=== PATIENT | male | born 1940 | race Caucasian/White ===

== ENCOUNTER 2019-10-03 19:47 | Inpatient (IN) | payer MEDICARE ==
[~2019-10-03] VITALS: Ht 182.9 cm; Wt 105.0 kg
[~2019-10-03 19:47] MED LIST: AMIODARONE 150 MG/3 ML VIAL ONE; EPINEPHrine SYRINGE 1 MG/10 ML SYRINGE ONE; SODIUM BICARB ADULT 8.4% 50 MEQ/50 ML DISP.SYRIN. ONE
[2019-10-03] MEDS ORDERED: NOREPINEPHRINE VIAL 8 MG in IV DEXTROSE 5% 250 ML IV ONE (20:30)
[2019-10-03] MEDS ORDERED: CLINDAMYCIN 900MG PREMIX 50 ML IV ONE (20:30)
[2019-10-03] MEDS ORDERED: PIPERACILLIN/TAZOBACTAM 3.375 GM in IV NORMAL SALINE 50ML 50 ML IV ONE (20:30)
[2019-10-03] MEDS ORDERED: VANCOMYCIN 1GM IVPB FOR OMNI 250 ML IV ONE (20:30)
[2019-10-03] MEDS ORDERED: PANTOPRAZOLE IV PUSH 40 MG VIAL. IVP ONE (20:30)
[2019-10-03] MEDS ORDERED: ETOMIDATE 20 MG/10 ML VIAL. IV ONE (20:30)
[2019-10-03] MEDS ORDERED: ROCURONIUM 100 MG/10 ML VIAL. IV ONE (20:30)
[2019-10-03 20:32] LABS: BASO % 0 % (0-3); EOS % 0 % (0-3); HEMATOCRIT 23.3 % (39.0-53.0); HEMOGLOBIN 7.3 g/dL (13.0-17.5); LYMPH # 1.3 x10^3/uL (1.0-4.8); LYMPH % 4 % (24-48); MEAN CORPUSCULAR HEMOGLOBIN 30 pg (25-35); MEAN CORPUSCULAR HGB CONC 31 g/dL (31-37); MEAN CORPUSCULAR VOLUME 96 fL (79-100); MONO # 0.7 x10^3/uL (0.0-1.1); MONO % 2 % (0-9); NEUT # 28.6 x10^3/uL (1.8-7.7); NEUT % 94 % (31-73); PLATELET COUNT 244 x10^3/uL (140-400); RED BLOOD COUNT 2.42 x10^6/uL (4.30-5.70); RED CELL DISTRIBUTION WIDTH 19.4 % (11.5-14.5); WHITE BLOOD COUNT 30.6 x10^3/uL (4.0-11.0)
[2019-10-03 20:43] VITALS: BP 117/67
[2019-10-03 20:44] LABS: CALCIUM 8.1 mg/dL (8.5-10.1); CREATININE 1.4 mg/dL (0.7-1.3); GFR 49.1; POTASSIUM 3.4 mmol/L (3.5-5.1)
--- NOTE | 2019-10-03 20:44 | RAD ---
CHEST AP ONLY, KUB History: Reason: line placement / Spl. Instructions: / History: Technique: AP view the chest and AP view the abdomen. Comparison: CT September 17, 2019 Findings: Right IJ central line with tip projecting over the cavoatrial junction. Patchy bibasilar opacities. No pleural effusion. Pneumoperitoneum. Aortic endograft noted. Several nondilated air-filled loops of small bowel within the imaged upper abdomen. Air-fluid levels within the imaged colon. Impression: 1. Pneumoperitoneum. Recommend correlation for recent surgery. CT can further evaluate if clinically indicated. 2. Patchy bibasilar opacities, may represent atelectasis or consolidation. Recommend follow-up. 3. Interval placement right IJ central line. No pneumothorax. FOR INTERNAL CODING PURPOSES Critical result: Findings discussed with SAMUEL HERRERA at 10/03/2019 8:38 PM. RESULT CODE: (C) Electronically signed by: Harshal Watkins DO (10/03/2019 8:41 PM) [facility]
[2019-10-03 20:47] LABS: PROTHROMBIN TIME PATIENT 21.1 SEC (11.7-14.0)
[2019-10-03 20:50] LABS: ALBUMIN 1.2 g/dL (3.4-5.0); ALBUMIN/GLOBULIN RATIO 0.4 (1.0-1.7); TOTAL BILIRUBIN 0.7 mg/dL (0.2-1.0); TOTAL PROTEIN 4.6 g/dL (6.4-8.2)
[2019-10-03 20:58] LABS: CREATINE KINASE 24 U/L (39-308)
[2019-10-03 21:03] LABS: ISTAT HCO3 VEN 12 mmol/L (24-28); ISTAT PCO2 VEN 40 mmHg (41-51); ISTAT PO2 VEN 76 mmHg (20-40); ISTAT TCO2 VEN 14 mmol/L (21-32)
[2019-10-03 21:04] LABS: FIO2 VENOUS ISTAT 21; ISTAT SAT O2 VEN 89 %
[2019-10-03 21:29] LABS: % BANDS 17 % (0-9); % LYMPHS 3 % (24-48); % METAS 3 % (0-0); % MONOS 2 % (0-10); % MYELOS 2 % (0-0); % SEGS 73 % (35-66); NUCLEATED RBC 8
[2019-10-03 21:30] LABS: ANISOCYTOSIS SLIGHT; PLT ESTIMATE ADEQUATE (ADEQUATE); POLYCHROMASIA MOD; TOXIC GRANULATION SLIGHT
--- NOTE | 2019-10-03 21:46 | RAD ---
KUB History: Reason: confirm NG / Spl. Instructions: / History: Technique: Supine view the abdomen. Comparison: October 03, 2019 Findings: Interval placement enteric tube with tip projecting over the mid gastric body. Pneumoperitoneum. Aortic endograft noted. Imaged bowel is not obstructed. Patchy bibasilar opacities. Possible small left pleural effusion. Impression: 1. Interval placement enteric tube. 2. Pneumoperitoneum, unchanged. 3. Patchy bibasilar opacities with possible small left pleural effusion. Electronically signed by: Harshal Watkins DO (10/03/2019 9:43 PM) [facility]
--- NOTE | 2019-10-03 21:58 | PHYS DOC ---
General Adult EDM: Chief Complaint: HYPOTENSION HPI: HPI: The history was obtained from the patient's primary care physician Dr. King. Patient is a 79 old male with PMH multiple comorbidities who presents with a chief complaint of hematemesis. Per the patient's primary care physician the patient has been treated for necrotizing fasciitis with IV antibiotics status post perineal debridement. Patient's primary care doctor states that he is currently residing at [facility]. He has had coffee-ground emesis for the past 24 hours. He noted his hemoglobin to be approximately 7.3. He states fluids were initiated at the [facility] and the patient will be transferred to our facility for further care. No history can be obtained from the patient given his mental status change and history of dementia. Review of Systems: Review of Systems: Unable to obtain review of systems secondary to the patient's mental status change Heart Score: Risk Factors: Risk Factors: DM, Current or recent (<one month) smoker, HTN, HLP, family history of CAD, obesity. Risk Scores: Score 0 - 3: 2.5% MACE over next 6 weeks - Discharge Home Score 4 - 6: 20.3% MACE over next 6 weeks - Admit for Clinical Observation Score 7 - 10: 72.7% MACE over next 6 weeks - Early Invasive Strategies Current Medications: Current Medications Medications (Trade) Dose Ordered Sig/Miguel Start Time Stop Time Status Last Admin Dose Admin Clindamycin Phosphate 50 ml @ 100 mls/hr 1X ONCE 10/03/19 20:30 10/03/19 20:59 DC Etomidate (Amidate) 20 mg 1X ONCE 10/03/19 20:30 10/03/19 20:31 DC Fentanyl Citrate 30 ml @ 0 mls/hr CONT PRN 10/03/19 21:00 Norepinephrine Bitartrate 8 mg/ Dextrose 258 ml @ 23.22 mls/ hr 1X ONCE 10/03/19 20:30 10/04/19 07:36 Pantoprazole Sodium (PROTONIX VIAL for IV PUSH) 80 mg 1X ONCE 10/03/19 20:30 10/03/19 20:31 DC Piperacillin Sod/ Tazobactam Sod 3.375 gm/Sodium Chloride 50 ml @ 100 mls/hr 1X ONCE 10/03/19 20:30 10/03/19 20:59 DC Rocuronium Goode (Zemuron) 100 mg 1X ONCE 10/03/19 20:30 10/03/19 20:31 DC Vancomycin HCl 250 ml @ 250 mls/hr 1X ONCE 10/03/19 20:30 10/03/19 21:29 DC Allergies: Allergies: Allergies Coded Allergies Type Severity Reaction Last Updated Verified Unable to Assess 10/03/19 No Physical Exam: PE: Constitutional: Chronically ill-appearing, malnourished, in distress. HENT: Normocephalic, atraumatic, bilateral external ears normal. Oropharynx with coffee-ground dried emesis. Dried mucous membranes Eyes: PERRLA, EOMI, conjunctiva normal, no discharge. [] Neck: Normal range of motion, no tenderness, supple, no stridor. [] Cardiovascu tachycardic Lungs & Thorax: Coarse lung sounds bilaterally Abdomen: Mild distention. Involuntary guarding appreciated. No rigidity noted. Suprapubic catheter in place. Skin: Warm, dry, no erythema, no rash. [] Back: 4 x 4 inch wound noted in the sacral region. Draining purulent sanguinous material. Extremities: No tenderness, no cyanosis, no clubbing, ROM intact, no edema. [] Neurologic: Alert. Unable to participate in meaningful neurologic exam. Does move all 4 extremity spontaneously. GCS:(12) [id number] Current Patient Data: Labs: Laboratory Tests Test 10/03/19 19:54 10/03/19 20:07 10/03/19 20:38 White Blood Count 30.6 x10^3/uL (4.0-11.0) H Red Blood Count 2.42 x10^6/uL (4.30-5.70) L Hemoglobin 7.3 g/dL (13.0-17.5) L Hematocrit 23.3 % (39.0-53.0) L Mean Corpuscular Volume 96 fL (79-100) Mean Corpuscular Hemoglobin 30 pg (25-35) Mean Corpuscular Hemoglobin Concent 31 g/dL (31-37) Red Cell Distribution Width 19.4 % (11.5-14.5) H Platelet Count 244 x10^3/uL (140-400) Neutrophils (%) (Auto) 94 % (31-73) H Lymphocytes (%) (Auto) 4 % (24-48) L Monocytes (%) (Auto) 2 % (0-9) Eosinophils (%) (Auto) 0 % (0-3) Basophils (%) (Auto) 0 % (0-3) Neutrophils # (Auto) 28.6 x10^3/uL (1.8-7.7) H Lymphocytes # (Auto) 1.3 x10^3/uL (1.0-4.8) Monocytes # (Auto) 0.7 x10^3/uL (0.0-1.1) Eosinophils # (Auto) 0.0 x10^3/uL (0.0-0.7) Basophils # (Auto) 0.0 x10^3/uL (0.0-0.2) Segmented Neutrophils % 73 % (35-66) H Band Neutrophils % 17 % (0-9) H Lymphocytes % 3 % (24-48) L Monocytes % 2 % (0-10) Metamyelocytes % 3 % (0-0) H Myelocytes % 2 % (0-0) H Nucleated Red Blood Cells 8 Toxic Granulation Slight Platelet Estimate Adequate (ADEQUATE) Polychromasia Mod Anisocytosis Slight Prothrombin Time 21.1 SEC (11.7-14.0) H Prothrombin Time INR 1.9 (0.8-1.1) H Activated Partial Thromboplast Time 41 SEC (24-38) H Fibrinogen 270 mg/dL (200-440) Sodium Level 139 mmol/L (136-145) Potassium Level 3.4 mmol/L (3.5-5.1) L Chloride Level 107 mmol/L (98-107) Carbon Dioxide Level 20 mmol/L (21-32) L Anion Gap 12 (6-14) Blood Urea Nitrogen 29 mg/dL (8-26) H Creatinine 1.4 mg/dL (0.7-1.3) H Estimated GFR (Cockcroft-Gault) 49.1 BUN/Creatinine Ratio 21 (6-20) H Glucose Level 192 mg/dL (70-99) H Lactic Acid Level 7.4 mmol/L (0.4-2.0) *H Calcium Level 8.1 mg/dL (8.5-10.1) L Total Bilirubin 0.7 mg/dL (0.2-1.0) Aspartate Amino Transferase (AST) 16 U/L (15-37) Alanine Aminotransferase (ALT) 18 U/L (16-63) Alkaline Phosphatase 157 U/L (46-116) H Creatine Kinase 24 U/L (39-308) L Creatine Kinase MB (Mass) 1.7 ng/mL (0.0-3.6) Creatine Kinase MB Relative Index % (0-4) Troponin I Quantitative 0.024 ng/mL (0.000-0.055) [id number]-Jif-U-Type Natriuretic Peptide 3865 pg/mL (0-449) H Total Protein 4.6 g/dL (6.4-8.2) L Albumin 1.2 g/dL (3.4-5.0) L Albumin/Globulin Ratio 0.4 (1.0-1.7) L POC Troponin I 0.04 ng/ml (<0.08) POC Venous pH 7.10 (7.32-7.42) L POC Venous pCO2 40 mmHg (41-51) L POC Venous pO2 76 mmHg (20-40) H Venous Blood HCO3 12 mmol/L (24-28) L POC Venous O2 Saturation (Salvatore) 89 % POC FiO2 21 Ionized Calcium 1.15 mmol/L (1.13-1.32) Laboratory Tests 10/03/19 19:54 Laboratory Tests 10/03/19 19:54 Vital Signs: Vital Signs Date Time Temp Pulse Resp B/P (MAP) Pulse Ox O2 Delivery O2 Flow Rate FiO2 10/03/19 20:53 Ventilator EKG: EKG: EKG consistent with sinus tachycardia. Ventricular rate 134 bpm. Left axis noted. Sinus arrhythmia present. No acute ST segment elevation noted. [] Radiology/Procedures: Radiology/Procedures: Endotracheal Intubation Procedure Note [place] Protocol: 1. Pre-procedure verification: - Correct patient, correct site, correct procedure (correct patient verified against two identifiers: name and date of ) - H&P or H&P update complete and in medical record - Review of: Radiology images, scans, labs, pathology, biopsy reports with appropriate identifiers (if applicable) - Any required blood products, implants, devices, and/or special equipment for the procedure (if applicable) 2. Site Markings - when appropriate: N/A 3. Time Out: Time out performed (Includes validating the following: Correct patient, correct side/site marked and procedure to performed, correct position) Procedure Details: Procedure: Endotracheal intubation Indication: Acute Respiratory Failure secondary to hypoxia Consent: Obtained verbally from and daughter Procedure: The patient was placed in the supine position and pre-oxygenated with 100% oxygen via BVM. Sedation was given with 20 mg of etomidate. Using a 4, glide scope, the cords were visualized; an 7.5 cuffed tube was able to be passed through the cords with direct visualization. Condensation was seen in the tube; bilateral breath-sounds were present, with none auscultated over the abdomen; good color change was present on EtCO2 detector. A CXR is ordered to cofirm placement. The ETT was secured at 24 cm at the lips. Mechanical ventilation is initiated at A/C, Vt 500 ml, 100% FiO2, rate 20, PEEP 5. The patient tolerated procedure without immediate complication. Atif Mederos, DO Procedure Central Line: Central Venous Line Procedure Note Sedation Plan: No Sedation [place] Protocol: 1. Pre-procedure verification: - Correct patient, correct site, correct procedure (correct patient verified against two identifiers: name and date of ) - H&P or H&P update complete and in medical record - Review of: Radiology images, scans, labs, pathology, biopsy reports with appropriate identifiers (if applicable) - Any required blood products, implants, devices, and/or special equipment for the procedure (if applicable) 2. Site Markings - when appropriate: N/A 3. Time Out: Time out performed (Includes validating the following: Correct patient, correct side/site marked and procedure to performed, correct position) Procedure Details: PROCEDURE: Central Line Placement INDICATION: Vascular access, hypotension, pressors CONSENT: Emergency consent PROCEDURE: Time out performed. The patient's right internal jugular vein was initially visualized via ultrasound. The area was then cleansed with Chlorhexadine Gluconate x30 seconds and anesthetized with 0 ml 1% lidocaine. The area was then prepped and drapped in sterile fashion, including maximum barrier precautions. Under sterile technique and U/S guidence, the introducer needle was cannulated into the right internal jugular vein vein. The guidewire was then threaded into the vein. The dilator was then placed over the guidewire and into the vein. It was then removed and then the Arrow 7Fr triple-lumen catheter was placed over the guidewire and the guidewire removed via the distal port. Dark red, non- pulsatile blood was aspirated from each port; each port was then flushed with NSS. The CVC was then secured with a stat-lock. A blue biodisk was placed after the area was cleansed again. The site was then dressed with an Opsite. CXR ordered to confirm placement. EBL minimal Atif Mederos, Course & Med Decision Making: Course & Med Decision Making Pertinent Labs and Imaging studies reviewed. (See chart for details) Patient is a 79-year-old male who presents from [facility] due to concerns for hematemesis. Upon arrival the patient does appear in acute distress. He does appear altered. Unclear whether this is secondary to his dementia or hypotension. Initial blood pressure noted to be hypotensive approximate 90/60. Tachycardic of approximate 130. 20-gauge IV was placed in the left antecubital fossa region for access. Patient remained hypotensive. Given my concern for our need of vascular access, centrally acting medication, resuscitation right internal jugular central catheter was placed. Emergency consent obtained. See procedure note for further details. Patient was started on fluid resuscitation. He was given broad-spectrum antibiotics including IV vancomycin, Zosyn, and clindamycin given his current necrotizing fasciitis infection. 80 mg of IV Protonix was administered given his hematemesis and concern for upper GI bleed. Patient did briefly respond to IV fluids however he did remain hypotensive. Given his labs revealed a hemoglobin of 7.3 yesterday to [facility] facility 2 units of packed red blood cells were administered. Initially massive transfusion protocol was started given my concern that the patient may need multiple blood products given potential active GI bleed. On repeat assessment his blood pressure did respond somewhat to transfusion. He was started on a low-dose of Levophed 0.02 mcg/kg/min. He did require intubation secondary to altered mental status as well as intermittent hypoxia. Bear hugger was applied given our difficulty in obtaining temperature reading. I did discuss the KUB findings with Dr. Solis general surgeon. It was concern for pneumoperitoneum that was not related to his recent procedure. Unfortunately patient is not sta ble enough for operative intervention at this time. I also spoke with Dr. Ward our GI specialist came I concern for unstable GI bleed although he did not show any further signs of GI blood loss in the trauma bay. Patient's family was updated on the patient's guarded prognosis. They did specifically tell me that they would like all measures taken including intubation and surgical intervention if indicated. Patient's primary care physician Dr. Vazquez was updated on the patient's care. He specifically recommended 100 mg of Solu- Cortef every 6 hours, 40 mg of Protonix daily, CT abdomen pelvis without contrast to be obtained tomorrow. I do not currently feel the patient is stable enough to transfer to CAT scan at this time. Patient will be hospitalized to the ICU with guarded prognosis. Dragon Disclaimer: Dragon Disclaimer: This electronic medical record was generated, in whole or in part, using a voice recognition dictation system. Departure Departure Impression: Primary Impression: Necrotizing fasciitis Additional Impressions: Septic shock Hemorrhagic shock Anemia Qualified Codes: D64.9 - Anemia, unspecified Sepsis with acute hypoxic respiratory failure Qualified Codes: A41.9 - Sepsis, unspecified organism; R65.20 - Severe sepsis without septic shock; J96.01 - Acute respiratory failure with hypoxia Lactic acidemia Metabolic acidosis Hematemesis Qualified Codes: K92.0 - Hematemesis Disposition: ADMITTED INPATIENT Condition: CRITICAL Referrals: DARNELL GUADALUPE MD (PCP) Justicifation of Admission Dx: Justifications for Admission: Justification of Admission Dx: Yes Respiratory Failure: Mechanical Ventilation Comminuty Aquired Pneumonia: Bactermia Sepsis: End-Organ Dysfunction ATIF MEDEROS DO Oct 03, 2019 21:58
[2019-10-03] MEDS ORDERED: MORPHINE SULFATE 4 MG/ML VIAL. IV PRN (22:15)
[2019-10-03] MEDS ORDERED: ONDANSETRON PF 4 MG/2 ML VIAL. IV PRN (22:15)
[2019-10-03] MEDS ORDERED: EPINEPHrine VIAL 5 MG in IV NORMAL SALINE 250ML 250 ML IV PRN (22:45)
[2019-10-03] MEDS ORDERED: EPINEPHrine SYRINGE 1 MG/10 ML SYRINGE IV ONE ×3 (22:45)
[2019-10-03 22:55] LABS: BASE EXCESS ABG -13 mmol/L (-3-3); CORRECTED PCO2 ABG 25 mmHg; CORRECTED PH ABG 7.29; CORRECTED PO2 ABG 155 mmHg; HCO3 ABG 12 mmol/L (21-28); PCO2 ABG 26 mmHg (35-46); PO2 ABG 159 mmHg (65-108); SAT O2 ABG 98 % (92-99)
[2019-10-03 23:30] VITALS: BP 58/45
--- NOTE | 2019-10-03 23:30 | NUR ---
Pt admitted to room 109 from ED. Placed on monitor and vent. Levophed, antibiotics and fluids infusing. Dr. Gonzales called for orders and notified of HR of 140s. Daughter Keith called and updated on status. Discussed code status and daughter stated that patient's would be the one to make decisions regarding his healthcare but she is sure that the would want to patient to be a full code. Wound to coccyx is open and drainage copious amount of serosanguineous fluid. Wound picture completed. Wound has a large mary drain that appears to be sutured inside but is coming out. Replaced mary drain inside cavity and covered wound with foam.
[2019-10-03 23:45] VITALS: BP 96/52
[2019-10-03] MEDS ORDERED: IV NORMAL SALINE 1000ML BAG 1,000 ML IV ONE ×3 (23:45)
[2019-10-03 23:47] LABS: FIO2 ABG 100
[2019-10-04] VITALS (31 sets, daily range): BP systolic 71–138; BP diastolic 45–93
[2019-10-04] MEDS ORDERED: 0.9 % SODIUM CHLORIDE 10 ML DISP.SYRIN. IV PRN (00:45)
[2019-10-04] MEDS: POTASSIUM CL 20MEQ D5-0.45NACL 1,000 ML IV SCH ×2 (01:09→08:00)
[2019-10-04] MEDS ORDERED: [UNRECOGNIZED DRUG - CODE] IV (01:26)
[2019-10-04] MEDS ORDERED: PRED-220 PO (01:26)
[2019-10-04] MEDS ORDERED: FLUT9.9S NS (01:26)
[2019-10-04] MEDS ORDERED: DIPH1TAB PO (01:26)
[2019-10-04] MEDS ORDERED: LOPE2CAP PO (01:26)
[2019-10-04] MEDS ORDERED: PIPE3.377 IV (01:26)
[2019-10-04] MEDS ORDERED: POTA20TA4 PO (01:26)
[2019-10-04] MEDS ORDERED: ENOX40DI SQ (01:26)
[2019-10-04] MEDS ORDERED: ONDA4DIS4 IJ (01:26)
[2019-10-04] MEDS ORDERED: SODI650T PO (01:26)
[2019-10-04] MEDS ORDERED: [UNRECOGNIZED DRUG - OTHER] PO (01:26)
[2019-10-04] MEDS ORDERED: QUET25TA5 PO ×2 (01:26)
[2019-10-04] MEDS ORDERED: DICL100G54 TP (01:26)
[2019-10-04] MEDS ORDERED: ACET325T21 PO (01:26)
[2019-10-04] MEDS ORDERED: MELA3TAB43 PO (01:26)
[2019-10-04] MEDS ORDERED: ANIDULAFUNGIN IV (01:26)
[2019-10-04] MEDS ORDERED: PANT40TA77 PO (01:26)
[2019-10-04] MEDS ORDERED: FURO-68 PO (01:26)
[2019-10-04] MEDS ORDERED: LEVO125T5 PO (01:26)
[2019-10-04] MEDS ORDERED: LIALDA1.2 GM PO (01:26)
[2019-10-04] MEDS ORDERED: OXYCHLOROSENE TOP (01:26)
[2019-10-04] MEDS: NOREPINEPHRINE VIAL 8 MG in IV DEXTROSE 5% 250 ML IV PRN ×3 (01:49→08:31)
[2019-10-04] MEDS ORDERED: ETOMIDATE 20 MG/10 ML VIAL. IV ONE (02:39)
[2019-10-04] MEDS ORDERED: ROCURONIUM 50 MG/5 ML VIAL. ONE (02:39)
[2019-10-04 02:43] LABS: BASO # 0.1 x10^3/uL (0.0-0.2); BASO % 0 % (0-3); EOS % 0 % (0-3); HEMATOCRIT 34.4 % (39.0-53.0); LYMPH % 2 % (24-48); MEAN CORPUSCULAR HEMOGLOBIN 30 pg (25-35); MEAN CORPUSCULAR HGB CONC 32 g/dL (31-37); MEAN CORPUSCULAR VOLUME 95 fL (79-100); MONO # 0.8 x10^3/uL (0.0-1.1); MONO % 2 % (0-9); NEUT # 47.9 x10^3/uL (1.8-7.7); NEUT % 96 % (31-73); PLATELET COUNT 249 x10^3/uL (140-400); RED BLOOD COUNT 3.61 x10^6/uL (4.30-5.70); RED CELL DISTRIBUTION WIDTH 17.6 % (11.5-14.5)
[2019-10-04 02:44] LABS: WHITE BLOOD COUNT 49.8 x10^3/uL (4.0-11.0)
[2019-10-04] MEDS ORDERED: IV NORMAL SALINE 1000ML BAG 1,000 ML IV ONE (03:15)
[2019-10-04] MEDS ORDERED: MIDAZOLAM HCL 100 MG in IV NORMAL SALINE 100ML 100 ML IV PRN (03:15)
[2019-10-04] MEDS: VASOPRESSIN 20 UNIT in IV DEXTROSE 5% 100ML 100 ML IV PRN ×3 (03:42→20:38)
--- NOTE | 2019-10-04 04:01 | EKG ---
[facility] [address] [place] [address] Test Date: 2019-10-03 Test Time: 20:15:34 Pat Name: HUANG ORTEZ Department: Room: 109 1 Gender: M Associate Justice: : 1940 Requested By: MAIN PANG Order Number: [id number] Reading MD: Measurements Intervals [place] Rate: 134 P: -49 SD: 126 QRS: -23 QRSD: 78 T: 264 QT: 304 QTc: 461 Interpretive Statements SINUS TACHYCARDIA ATRIAL PREMATURE COMPLEX(ES) LEFTWARD AXIS LOW LIMB LEAD VOLTAGE T ABNORMALITY IN ANTEROSEPTAL LEADS ABNORMAL ECG RI6.02 No previous ECG available for comparison
[2019-10-04] MEDS: PIPERACILLIN/TAZOBACTAM 3.375 GM in IV NORMAL SALINE 50ML 50 ML IV SCH ×4 (06:02→23:35)
[2019-10-04] MEDS: HYDROCORTISONE SOD SUCC/PF 100 MG/2 ML VIAL. IVP SCH ×4 (06:02→23:35)
[2019-10-04 07:21] LABS: ALBUMIN 1.1 g/dL (3.4-5.0); ALBUMIN/GLOBULIN RATIO 0.3 (1.0-1.7); CALCIUM 7.5 mg/dL (8.5-10.1); CREATININE 1.3 mg/dL (0.7-1.3); GFR 53.5; TOTAL PROTEIN 4.5 g/dL (6.4-8.2)
[2019-10-04 07:24] LABS: POTASSIUM 3.5 mmol/L (3.5-5.1)
--- NOTE | 2019-10-04 07:40 | PDOC ---
Infectious Disease Note Vital Sign Vital Signs Vital Signs Date Time Temp Pulse Resp B/P (MAP) Pulse Ox O2 Delivery O2 Flow Rate FiO2 10/04/19 06:00 98.1 137 20 89/62 (71) 99 Ventilator 98.1 10/03/19 19:50 3.0 Labs Lab Laboratory Tests Test 10/03/19 19:54 10/03/19 20:07 10/03/19 20:38 10/03/19 22:35 White Blood Count 30.6 x10^3/uL (4.0-11.0) Red Blood Count 2.42 x10^6/uL (4.30-5.70) Hemoglobin 7.3 g/dL (13.0-17.5) Hematocrit 23.3 % (39.0-53.0) Mean Corpuscular Volume 96 fL (79-100) Mean Corpuscular Hemoglobin 30 pg (25-35) Mean Corpuscular Hemoglobin Concent 31 g/dL (31-37) Red Cell Distribution Width 19.4 % (11.5-14.5) Platelet Count 244 x10^3/uL (140-400) Neutrophils (%) (Auto) 94 % (31-73) Lymphocytes (%) (Auto) 4 % (24-48) Monocytes (%) (Auto) 2 % (0-9) Eosinophils (%) (Auto) 0 % (0-3) Basophils (%) (Auto) 0 % (0-3) Neutrophils # (Auto) 28.6 x10^3/uL (1.8-7.7) Lymphocytes # (Auto) 1.3 x10^3/uL (1.0-4.8) Monocytes # (Auto) 0.7 x10^3/uL (0.0-1.1) Eosinophils # (Auto) 0.0 x10^3/uL (0.0-0.7) Basophils # (Auto) 0.0 x10^3/uL (0.0-0.2) Segmented Neutrophils % 73 % (35-66) Band Neutrophils % 17 % (0-9) Lymphocytes % 3 % (24-48) Monocytes % 2 % (0-10) Metamyelocytes % 3 % (0-0) Myelocytes % 2 % (0-0) Nucleated Red Blood Cells 8 Toxic Granulation Slight Platelet Estimate Adequate (ADEQUATE) Polychromasia Mod Anisocytosis Slight Prothrombin Time 21.1 SEC (11.7-14.0) Prothromb Time International Ratio 1.9 (0.8-1.1) Activated Partial Thromboplast Time 41 SEC (24-38) Fibrinogen 270 mg/dL (200-440) Sodium Level 139 mmol/L (136-145) Potassium Level 3.4 mmol/L (3.5-5.1) Chloride Level 107 mmol/L (98-107) Carbon Dioxide Level 20 mmol/L (21-32) Anion Gap 12 (6-14) Blood Urea Nitrogen 29 mg/dL (8-26) Creatinine 1.4 mg/dL (0.7-1.3) Estimated GFR (Cockcroft-Gault) 49.1 BUN/Creatinine Ratio 21 (6-20) Glucose Level 192 mg/dL (70-99) Lactic Acid Level 7.4 mmol/L (0.4-2.0) Calcium Level 8.1 mg/dL (8.5-10.1) Total Bilirubin 0.7 mg/dL (0.2-1.0) Aspartate Amino Transf (AST/SGOT) 16 U/L (15-37) Alanine Aminotransferase (ALT/SGPT) 18 U/L (16-63) Alkaline Phosphatase 157 U/L (46-116) Creatine Kinase 24 U/L (39-308) Creatine Kinase MB (Mass) 1.7 ng/mL (0.0-3.6) Creatine Kinase MB Relative Index % (0-4) Troponin I Quantitative 0.024 ng/mL (0.000-0.055) [id number] Natriuretic Peptide 3865 pg/mL (0-449) Total Protein 4.6 g/dL (6.4-8.2) Albumin 1.2 g/dL (3.4-5.0) Albumin/Globulin Ratio 0.4 (1.0-1.7) Bedside Troponin I 0.04 ng/ml (<0.08) Bedside Venous pH 7.10 (7.32-7.42) Bedside Venous pCO2 40 mmHg (41-51) Bedside Venous pO2 76 mmHg (20-40) Venous Blood HCO3 12 mmol/L (24-28) POC Venous O2 Saturation (Salvatore) 89 % Bedside FiO2 21 Ionized Calcium 1.15 mmol/L (1.13-1.32) O2 Saturation 98 % (92-99) Arterial Blood pH 7.28 (7.35-7.45) Arterial Blood pH (Temp corrected) 7.29 Arterial Blood pCO2 at Patient Temp 26 mmHg (35-46) Arterial Blood pCO2 (Temp correct) 25 mmHg Arterial Blood pO2 at Patient Temp 159 mmHg (65-108) Arterial Blood pO2 (Temp corrected) 155 mmHg Arterial Blood HCO3 12 mmol/L (21-28) Arterial Blood Base Excess -13 mmol/L (-3-3) FiO2 100 Test 10/04/19 01:20 White Blood Count 49.8 x10^3/uL (4.0-11.0) Red Blood Count 3.61 x10^6/uL (4.30-5.70) Hemoglobin 11.0 g/dL (13.0-17.5) Hematocrit 34.4 % (39.0-53.0) Mean Corpuscular Volume 95 fL (79-100) Mean Corpuscular Hemoglobin 30 pg (25-35) Mean Corpuscular Hemoglobin Concent 32 g/dL (31-37) Red Cell Distribution Width 17.6 % (11.5-14.5) Platelet Count 249 x10^3/uL (140-400) Neutrophils (%) (Auto) 96 % (31-73) Lymphocytes (%) (Auto) 2 % (24-48) Monocytes (%) (Auto) 2 % (0-9) Eosinophils (%) (Auto) 0 % (0-3) Basophils (%) (Auto) 0 % (0-3) Neutrophils # (Auto) 47.9 x10^3/uL (1.8-7.7) Lymphocytes # (Auto) 1.0 x10^3/uL (1.0-4.8) Monocytes # (Auto) 0.8 x10^3/uL (0.0-1.1) Eosinophils # (Auto) 0.0 x10^3/uL (0.0-0.7) Basophils # (Auto) 0.1 x10^3/uL (0.0-0.2) Sodium Level 140 mmol/L (136-145) Potassium Level 3.5 mmol/L (3.5-5.1) Chloride Level 108 mmol/L (98-107) Carbon Dioxide Level 16 mmol/L (21-32) Anion Gap 16 (6-14) Blood Urea Nitrogen 28 mg/dL (8-26) Creatinine 1.3 mg/dL (0.7-1.3) Estimated GFR (Cockcroft-Gault) 53.5 BUN/Creatinine Ratio 22 (6-20) Glucose Level 215 mg/dL (70-99) Lactic Acid Level 4.0 mmol/L (0.4-2.0) Calcium Level 7.5 mg/dL (8.5-10.1) Magnesium Level 1.8 mg/dL (1.8-2.4) Total Bilirubin 1.0 mg/dL (0.2-1.0) Aspartate Amino Transf (AST/SGOT) 32 U/L (15-37) Alanine Aminotransferase (ALT/SGPT) 20 U/L (16-63) Alkaline Phosphatase 159 U/L (46-116) Troponin I Quantitative 0.043 ng/mL (0.000-0.055) Total Protein 4.5 g/dL (6.4-8.2) Albumin 1.1 g/dL (3.4-5.0) Albumin/Globulin Ratio 0.3 (1.0-1.7) Objective Assessment pt seen, consult dictated Plan Plan of Care / LILLY MOREL MD Oct 04, 2019 07:40
[2019-10-04] MEDS ORDERED: NACL IV ONE (08:00)
[2019-10-04] MEDS ORDERED: DEXTROSE IV ONE (08:00)
[2019-10-04] MEDS ORDERED: SODIUM BICARBONATE IV ONE (08:00)
[2019-10-04 08:25] LABS: BASE EXCESS ABG -14 mmol/L (-3-3); HCO3 ABG 12 mmol/L (21-28); PCO2 ABG 29 mmHg (35-46); PO2 ABG 253 mmHg (65-108); SAT O2 ABG 99 % (92-99)
[2019-10-04 08:29] LABS: FIO2 ABG 80
[2019-10-04] MEDS: MICAFUNGIN 100 MG in IV DEXTROSE 5% 100ML 100 ML IV SCH (08:29)
--- NOTE | 2019-10-04 08:50 | PDOC ---
Provider Note Provider Note history and physical dictated # [id number] DARNELL GUADALUPE MD Oct 04, 2019 08:50
--- NOTE | 2019-10-04 08:57 | RAD ---
EXAM: AP View of the chest DATE: 10/04/2019 8:00 AM INDICATION: intubated COMPARISON: 10/03/2019 FINDINGS: Right IJ vascular catheter tip terminates over the proximal right atrium. Enteric tube extends beyond the diaphragm tip is not visualized. ET tube tip terminates 2 cm above the turner. Heart is mildly enlarged. Atherosclerotic calcifications of the tortuous aorta are seen. Left greater than right lung base airspace opacities are seen, progressed compared to 10/03/2019 Small bilateral pleural effusions. No pneumothorax. IMPRESSION: Bilateral airspace opacities have progressed compared 10/03/2019. Findings may represent progressing consolidative process, pulmonary edema and atelectasis. Electronically signed by: Augustus Simmons MD (10/04/2019 8:54 AM) [id number]
[2019-10-04] MEDS ORDERED: PANTOPRAZOLE IV PUSH 40 MG VIAL. IVP SCH ×2 (09:00→21:00)
--- NOTE | 2019-10-04 09:11 | PDOC2 ---
GI CONSULT Date of Service: DATE: 10/04/19 TIME: 09:11 Reason For Consult: upper GI bleed HPI: HPI: 79 y/o male admitted from [facility]. Nurse was told "24 hours of vomiting blood," and chart mentions coffee-ground emesis. Also mention of rectal bleeding. H/o ?necrotizing fasciitis involving perirectal/gluteal area s/p debridement, I&D at [facility]. H/o Crohn's reportedly diagnosed in 06/2019 ?through [facility] - on mesalamine and steroids since. H/o heartburn. No GB, pancreas, liver, or PUD history. ?started on PPI at [facility] Hypotensive on pressors in ICU. X-rays note pneumoperitoneum. CT ordered, COVID swab pending. PMH: PMH: per chart and other records - HTN, AAA, hypothyroidism, Crohn's, perirectal abscess FH: Family History: Other (unable to obtain) Social History: ALCOHOL: other (alcohol in the past) Drugs: None ROS: Unable to obtain. Vitals: Vitals: Vital Signs Date Time Temp Pulse Resp B/P (MAP) Pulse Ox O2 Delivery O2 Flow Rate FiO2 10/04/19 08:05 100 Ventilator 10/04/19 06:00 98.1 137 20 89/62 (71) 98.1 10/03/19 19:50 3.0 Labs: Labs: Laboratory Tests Test 10/03/19 19:54 10/03/19 20:07 10/03/19 20:38 10/03/19 22:35 White Blood Count 30.6 x10^3/uL (4.0-11.0) Red Blood Count 2.42 x10^6/uL (4.30-5.70) Hemoglobin 7.3 g/dL (13.0-17.5) Hematocrit 23.3 % (39.0-53.0) Mean Corpuscular Volume 96 fL (79-100) Mean Corpuscular Hemoglobin 30 pg (25-35) Mean Corpuscular Hemoglobin Concent 31 g/dL (31-37) Red Cell Distribution Width 19.4 % (11.5-14.5) Platelet Count 244 x10^3/uL (140-400) Neutrophils (%) (Auto) 94 % (31-73) Lymphocytes (%) (Auto) 4 % (24-48) Monocytes (%) (Auto) 2 % (0-9) Eosinophils (%) (Auto) 0 % (0-3) Basophils (%) (Auto) 0 % (0-3) Neutrophils # (Auto) 28.6 x10^3/uL (1.8-7.7) Lymphocytes # (Auto) 1.3 x10^3/uL (1.0-4.8) Monocytes # (Auto) 0.7 x10^3/uL (0.0-1.1) Eosinophils # (Auto) 0.0 x10^3/uL (0.0-0.7) Basophils # (Auto) 0.0 x10^3/uL (0.0-0.2) Segmented Neutrophils % 73 % (35-66) Band Neutrophils % 17 % (0-9) Lymphocytes % 3 % (24-48) Monocytes % 2 % (0-10) Metamyelocytes % 3 % (0-0) Myelocytes % 2 % (0-0) Nucleated Red Blood Cells 8 Toxic Granulation Slight Platelet Estimate Adequate (ADEQUATE) Polychromasia Mod Anisocytosis Slight Prothrombin Time 21.1 SEC (11.7-14.0) Prothromb Time International Ratio 1.9 (0.8-1.1) Activated Partial Thromboplast Time 41 SEC (24-38) Fibrinogen 270 mg/dL (200-440) Sodium Level 139 mmol/L (136-145) Potassium Level 3.4 mmol/L (3.5-5.1) Chloride Level 107 mmol/L (98-107) Carbon Dioxide Level 20 mmol/L (21-32) Anion Gap 12 (6-14) Blood Urea Nitrogen 29 mg/dL (8-26) Creatinine 1.4 mg/dL (0.7-1.3) Estimated GFR (Cockcroft-Gault) 49.1 BUN/Creatinine Ratio 21 (6-20) Glucose Level 192 mg/dL (70-99) Lactic Acid Level 7.4 mmol/L (0.4-2.0) Calcium Level 8.1 mg/dL (8.5-10.1) Total Bilirubin 0.7 mg/dL (0.2-1.0) Aspartate Amino Transf (AST/SGOT) 16 U/L (15-37) Alanine Aminotransferase (ALT/SGPT) 18 U/L (16-63) Alkaline Phosphatase 157 U/L (46-116) Creatine Kinase 24 U/L (39-308) Creatine Kinase MB (Mass) 1.7 ng/mL (0.0-3.6) Creatine Kinase MB Relative Index % (0-4) Troponin I Quantitative 0.024 ng/mL (0.000-0.055) PH-Qep-A-Type Natriuretic Peptide 3865 pg/mL (0-449) Total Protein 4.6 g/dL (6.4-8.2) Albumin 1.2 g/dL (3.4-5.0) Albumin/Globulin Ratio 0.4 (1.0-1.7) Bedside Troponin I 0.04 ng/ml (<0.08) Bedside Venous pH 7.10 (7.32-7.42) Bedside Venous pCO2 40 mmHg (41-51) Bedside Venous pO2 76 mmHg (20-40) Venous Blood HCO3 12 mmol/L (24-28) POC Venous O2 Saturation (Salvatore) 89 % Bedside FiO2 21 Ionized Calcium 1.15 mmol/L (1.13-1.32) O2 Saturation 98 % (92-99) Arterial Blood pH 7.28 (7.35-7.45) Arterial Blood pH (Temp corrected) 7.29 Arterial Blood pCO2 at Patient Temp 26 mmHg (35-46) Arterial Blood pCO2 (Temp correct) 25 mmHg Arterial Blood pO2 at Patient Temp 159 mmHg (65-108) Arterial Blood pO2 (Temp corrected) 155 mmHg Arterial Blood HCO3 12 mmol/L (21-28) Arterial Blood Base Excess -13 mmol/L (-3-3) FiO2 100 Test 10/04/19 01:20 10/04/19 08:15 White Blood Count 49.8 x10^3/uL (4.0-11.0) Red Blood Count 3.61 x10^6/uL (4.30-5.70) Hemoglobin 11.0 g/dL (13.0-17.5) Hematocrit 34.4 % (39.0-53.0) Mean Corpuscular Volume 95 fL (79-100) Mean Corpuscular Hemoglobin 30 pg (25-35) Mean Corpuscular Hemoglobin Concent 32 g/dL (31-37) Red Cell Distribution Width 17.6 % (11.5-14.5) Platelet Count 249 x10^3/uL (140-400) Neutrophils (%) (Auto) 96 % (31-73) Lymphocytes (%) (Auto) 2 % (24-48) Monocytes (%) (Auto) 2 % (0-9) Eosinophils (%) (Auto) 0 % (0-3) Basophils (%) (Auto) 0 % (0-3) Neutrophils # (Auto) 47.9 x10^3/uL (1.8-7.7) Lymphocytes # (Auto) 1.0 x10^3/uL (1.0-4.8) Monocytes # (Auto) 0.8 x10^3/uL (0.0-1.1) Eosinophils # (Auto) 0.0 x10^3/uL (0.0-0.7) Basophils # (Auto) 0.1 x10^3/uL (0.0-0.2) Sodium Level 140 mmol/L (136-145) Potassium Level 3.5 mmol/L (3.5-5.1) Chloride Level 108 mmol/L (98-107) Carbon Dioxide Level 16 mmol/L (21-32) Anion Gap 16 (6-14) Blood Urea Nitrogen 28 mg/dL (8-26) Creatinine 1.3 mg/dL (0.7-1.3) Estimated GFR (Cockcroft-Gault) 53.5 BUN/Creatinine Ratio 22 (6-20) Glucose Level 215 mg/dL (70-99) Lactic Acid Level 4.0 mmol/L (0.4-2.0) Calcium Level 7.5 mg/dL (8.5-10.1) Magnesium Level 1.8 mg/dL (1.8-2.4) Total Bilirubin 1.0 mg/dL (0.2-1.0) Aspartate Amino Transf (AST/SGOT) 32 U/L (15-37) Alanine Aminotransferase (ALT/SGPT) 20 U/L (16-63) Alkaline Phosphatase 159 U/L (46-116) Troponin I Quantitative 0.043 ng/mL (0.000-0.055) Total Protein 4.5 g/dL (6.4-8.2) Albumin 1.1 g/dL (3.4-5.0) Albumin/Globulin Ratio 0.3 (1.0-1.7) O2 Saturation 99 % (92-99) Arterial Blood pH 7.23 (7.35-7.45) Arterial Blood pCO2 at Patient Temp 29 mmHg (35-46) Arterial Blood pO2 at Patient Temp 253 mmHg (65-108) Arterial Blood HCO3 12 mmol/L (21-28) Arterial Blood Base Excess -14 mmol/L (-3-3) FiO2 80 Allergies: Coded Allergies: No Known Drug Allergies (Unverified , 10/04/19) Medications: Current Medications Medications (Trade) Dose Ordered Sig/Miguel Route PRN Reason Start Time Stop Time Status Last Admin Dose Admin Pantoprazole Sodium (PROTONIX VIAL for IV PUSH) 80 mg 1X ONCE IVP 10/03/19 20:30 10/03/19 20:31 DC 10/03/19 20:59 Vancomycin HCl 250 ml @ 250 mls/hr 1X ONCE IV 10/03/19 20:30 10/03/19 21:29 DC 10/03/19 20:59 Piperacillin Sod/ Tazobactam Sod 3.375 gm/Sodium Chloride 50 ml @ 100 mls/hr 1X ONCE IV 10/03/19 20:30 10/03/19 20:59 DC 10/03/19 21:20 Norepinephrine Bitartrate 8 mg/ Dextrose 258 ml @ 23.22 mls/ hr 1X ONCE IV 10/03/19 20:30 10/04/19 07:36 DC 10/03/19 20:40 Rocuronium Stanley (Zemuron) 100 mg 1X ONCE IV 10/03/19 20:30 10/03/19 20:31 DC 10/03/19 20:51 Etomidate (Amidate) 20 mg 1X ONCE IV 10/03/19 20:30 10/03/19 20:31 DC 10/03/19 20:52 Clindamycin Phosphate 50 ml @ 100 mls/hr 1X ONCE IV 10/03/19 20:30 10/03/19 20:59 DC 10/03/19 23:15 Fentanyl Citrate 30 ml @ 0 mls/hr CONT PRN IV SEE PROTOCOL 10/03/19 21:00 10/04/19 06:27 Hydrocortisone Sodium Succinate (Solu-CORTEF) 100 mg Q6HRS IVP 10/04/19 06:00 10/04/19 06:02 Pantoprazole Sodium (PROTONIX VIAL for IV PUSH) 40 mg DAILY IVP 10/04/19 09:00 10/04/19 08:29 Epinephrine HCl 5 mg/Sodium Chloride 255 ml @ 33.66 mls/ hr CONT PRN IV SEE I/O RECORD 10/03/19 22:45 10/03/19 20:29 Epinephrine HCl (EPINEPHrine SYRINGE) 1 mg 1X ONCE IV 10/03/19 22:45 10/03/19 22:46 DC 10/03/19 20:54 Epinephrine HCl (EPINEPHrine SYRINGE) 1 mg 1X ONCE IV 10/03/19 22:45 10/03/19 22:46 DC 10/03/19 20:13 Epinephrine HCl (EPINEPHrine SYRINGE) 1 mg 1X ONCE IV 10/03/19 22:45 10/03/19 22:46 DC 10/03/19 20:06 Sodium Chloride 1,000 ml @ 1,000 mls/hr 1X ONCE IV 10/03/19 23:45 10/04/19 00:44 DC 10/03/19 19:54 Sodium Chloride 1,000 ml @ 1,000 mls/hr 1X ONCE IV 10/03/19 23:45 10/04/19 00:44 DC 10/03/19 20:39 Sodium Chloride 1,000 ml @ 1,000 mls/hr 1X ONCE IV 10/03/19 23:45 10/04/19 00:44 DC 10/03/19 21:12 Potassium Chloride/Dextrose/ Sod Cl 1,000 ml @ 100 mls/hr Q10H IV 10/04/19 01:00 10/04/19 08:31 DC 10/04/19 01:09 Norepinephrine Bitartrate 8 mg/ Dextrose 258 ml @ 21.285 mls/ hr CONT PRN IV PER PROTOCOL 10/04/19 01:45 10/04/19 08:59 DC 10/04/19 08:31 Linezolid/Dextrose 300 ml @ 300 mls/hr Q12HR IV 10/04/19 09:00 10/04/19 08:28 Piperacillin Sod/ Tazobactam Sod 3.375 gm/Sodium Chloride 50 ml @ 100 mls/hr Q6HRS IV 10/04/19 06:00 10/04/19 06:02 Sodium Chloride 1,000 ml @ 1,000 mls/hr 1X ONCE IV 10/04/19 03:15 10/04/19 04:14 DC 10/04/19 03:17 Vasopressin 20 unit/Dextrose 101 ml @ 12 mls/hr CONT PRN IV SEE I/O RECORD 10/04/19 03:15 10/04/19 03:42 Midazolam HCl 100 mg/Sodium Chloride 100 ml @ 1 mls/hr CONT PRN IV SEE I/O RECORD 10/04/19 03:15 10/04/19 03:42 Micafungin Sodium 100 mg/Dextrose 100 ml @ 100 mls/hr Q24H IV 10/04/19 09:00 10/04/19 08:29 Sodium Bicarbonate 100 meq/Dextrose/ Sodium Chloride 1,100 ml @ 125 mls/hr 1X ONCE IV 10/04/19 08:00 10/04/19 16:47 10/04/19 08:27 Imaging: Imaging: CXR 10/03 IMPRESSION: Bilateral airspace opacities have progressed compared 10/03/2019. Findings may represent progressing consolidative process, pulmonary edema and atelectasis. KUB 10/02 Impression: 1. Interval placement enteric tube. 2. Pneumoperitoneum, unchanged. 3. Patchy bibasilar opacities with possible small left pleural effusion. CXR, KUB 10/02 Impression: 1. Pneumoperitoneum. Recommend correlation for recent surgery. CT can further evaluate if clinically indicated. 2. Patchy bibasilar opacities, may represent atelectasis or consolidation. Recommend follow-up. 3. Interval placement right IJ central line. No pneumothorax. PE: GEN: intubated HEENT: Atraumatic LUNGS: clear, vent HEART: tachycardic ABD: quiet, soft, some coffee-ground material in OG tube, more reddish/clear in canister - reviewed pic of wound in chart EXTREMITY: SKIN: mottling RLE NEURO/PSYCH: sedated A/P: A/P: Coffee-ground emesis, hypotension Leuckocytosis, lactic acidosis, anemia (Hgb on 09/25 was 8.6 - first check here 7.3 and now 11 s/p 2 unit pRBCs, BUN 29) Pneumoperitoneum H/o perirectal abscess s/p debridement Heartburn CRC screen - ?colonoscopy 06/2019 @ [facility] H/o Crohn's (on mesalamine, steroids) R/o COVID-19 -- Hgb stable - monitor this and observe for bleeding. Agree w/ PPI. Will ask for records from [facility]. Await CT and COVID results. ROBER AMADOR Oct 04, 2019 09:11
[2019-10-04] MEDS ORDERED: DEXTROSE 50% 25 GM / 50ML DISP.SYRIN. IV PRN (09:15)
[2019-10-04] MEDS: NOREPINEPHRINE VIAL 32 MG in IV D5W 250ML IV PRN ×4 (09:27→22:12)
[2019-10-04] MEDS ORDERED: SODIUM BICARB ADULT 8.4% 50 MEQ/50 ML DISP.SYRIN. ONE (09:28)
[2019-10-04] MEDS ORDERED: DIGOXIN IV 500 MCG/2 ML AMPUL. IV ONE ×2 (09:30→13:15)
[2019-10-04] MEDS ORDERED: SODIUM BICARB ADULT 8.4% 50 MEQ/50 ML DISP.SYRIN. IV ONE ×2 (09:30)
--- NOTE | 2019-10-04 10:57 | HP ---
ADMIT DATE: 10/03/2019 LOCATION: He is in Intensive Care Unit, room 109. HISTORY OF PRESENT ILLNESS: The patient is a 79-year-old white male diagnosed with Crohn's disease in 06/2019 and who was admitted to the [facility] on 09/17/2019 and had a perirectal abscess with incision and drainage, was also diagnosed with necrotizing fasciitis and Shalonda gangrene, treated with debridement and IV antibiotics. The patient also has a history of an abdominal aortic aneurysm. He also had a metabolic encephalopathy in the previous hospital, history of hypertension and hypothyroidism, and was admitted to [facility] on 09/25/2019 for IV antibiotics and wound care. The patient had a large wound and he had some purulent material in stool noted from that. He was noted not to be a good candidate for diverting colostomy. He received wound care and IV antibiotics. Then yesterday, the patient during the early evening was noted to have diffuse abdominal tenderness, absent bowel sounds, abdominal distention and he developed hypotension and had some coffee-ground emesis. He had hypotension and received IV fluid boluses and IV fluids. He also had acute hypoxic respiratory failure and was placed on oxygen high flow. The patient was seen by the house physician at [facility]. Yesterday, I spoke with them and to be decided to send him to [facility]. The policy of [facility] was not to accept the patient straight to the Intensive Care Unit, so he had to go to the Emergency Room and I spoke with the nurse commodity supervisor and Emergency Room doctor and advanced a letter to let them know about the case. The patient was seen in the Emergency Room. He had workup, which showed that he had acute hypoxic respiratory failure and had to be intubated. He also received IV fluids and 2 units of packed red blood cells. His hemoglobin was 7.3. Previously it was 7.5 at the other hospital and his white count was 30.6. He had IV antibiotics started, receiving vancomycin and clindamycin in the Emergency Room as well as IV Zosyn. He had a KUB, which showed pneumoperitoneum. He was not stable enough to get a CAT scan of abdomen and pelvis done. He was admitted to the Intensive Care Unit. He was started on pressors. Currently on Levophed and also vasopressin. He receiving IV fluids. He has an orogastric tube to suction. His blood pressure is better, but his white count is higher at 49.8 today. Hemoglobin was high at 11.0. His BUN was 28, creatinine 1.3. His albumin was low at 1.1. The patient is therefore admitted with a perforated viscus and sepsis with shock. ALLERGIES AND INTOLERANCES: None. MEDICATIONS: Prior to admission include Eraxis 100 mg IV every 24 hours, Voltaren gel 1 gram q.i.d., Lovenox 40 mg subcutaneous every 24 hours, Flonase 2 sprays each nostril daily, levothyroxine 125 mcg daily, mesalamine 4.8 grams every day, Protonix 40 mg every day, Zosyn 3.375 grams IV every 6 hours, potassium chloride 20 mEq every day, prednisone was reduced from 25 to 20 mg every day, Seroquel 25 mg at bedtime, sodium bicarbonate 1300 mg b.i.d., morphine sulfate 4 mg IV every 4 hours p.r.n., Zofran 4 mg IV every 6 hours p.r.n. PAST MEDICAL HISTORY: Significant for hypothyroidism, abdominal aortic aneurysm, recently diagnosed Crohn's disease, and immunosuppressed due to Crohn's disease. 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 SOCIAL HISTORY: He is . He actually has 1 drink a day and he quit smoking in the past, prior to that smoked 1 pack per day of cigarettes. FAMILY HISTORY: Not obtainable. REVIEW OF SYSTEMS: Not obtainable. He is on the ventilator. PHYSICAL EXAMINATION: VITAL SIGNS: Temperature is 98.1 degrees, heart rate 137, respiratory rate 20. When I was in the room, his blood pressure was 117/68 on pressors. HEENT: Eyes are closed and his gaze is conjugate when his upper eyelids were retracted. He is orally intubated, on the ventilator. He has got an orogastric tube to suction. HEART: Reveals an S1, S2. There is no S3 or murmur. LUNGS: Clear anteriorly. ABDOMEN: Soft, not distended, not tender, but he is sedated. Absent bowel sounds. No guarding. GENITOURINARY: He has got a Dumont catheter. EXTREMITIES: Lower extremities 2+ edema in the legs. He did have a recent venous Doppler at the previous hospital of both legs, was negative for deep vein thrombosis. NEUROLOGIC: He is sedated. SKIN: No rashes. After look at the pictures of his wound involving the gluteal area from the previous necrotizing fasciitis. LABORATORY DATA: Review of his laboratory tests, his white count yesterday was 30.6, today is 49.8, hemoglobin 7.3 yesterday, previously it was 7.5 and today it is 11.0 after 2 units of packed red blood cells. Platelet count is 249,000. Today at 96 polys and 2 lymphocytes in white cell differential. Yesterday at 73 polys and 17 bands with 3 metamyelocytes and 2 myelocytes. Arterial blood gas done last night showed a pH 7.28, pCO2 of 26 and a pO2 of 159, 100% FiO2. He is on 80% FiO2 right now. INR was 1.9 with PTT of 41 and fibrinogen of 270. Sodium today is 140, potassium 3.5, chloride 108, total CO2 of 16, BUN 28, creatinine 1.3, blood sugar was 215. Alkaline phosphatase 159. Albumin was 1.1. SGOT and SGPT were normal, alkaline phosphatase 159, total bilirubin 1. Magnesium 1.8, lactic acid level is 4.0, yesterday was 7.4. Troponin levels 0.04 and 0.024 before that. ProBNP was 3865. CPK of 24. He had a KUB done last night, which showed pneumoperitoneum. He also had patchy basilar infiltrates, patchy bibasilar opacities and possible left pleural effusion. He also had a chest x-ray done, which showed a pneumoperitoneum in the patchy opacities as mentioned. He is in sinus tachycardia with rate of 136. ASSESSMENT: 1. Sepsis with severe shock. 2. Perforated viscus. 3. Anemia of chronic disease and possible acute blood loss anemia. 4. Acute hypoxic respiratory failure, on the ventilator. 5. Metabolic acidosis secondary to the sepsis with shock. 6. Severe protein-calorie malnutrition. 7. Necrotizing fasciitis. 8. Large gluteal wound. 9. Leukocytosis. PLAN: At this time is to consult Dr. Momo De Leon who has already seen the patient. We will also consult Dr. Foy and also consult Dr. Momo De Leon for Infectious Disease. Consult Dr. Foy for Pulmonary ventilator management and Dr. Landaverde, who is aware of the case, who is a general surgeon. He ordered COVID-19 ____ in case he becomes a surgical candidate. We will continue with his pressors. Continue with the IV antibiotics, Zyvox, Zosyn, and micafungin. Continue with hydrocortisone at stress dose of 100 mg IV every 6 hours to help prevent adrenal insufficiency. Continue IV Protonix as he did have some coffee-ground material. We will see if he can get a CAT scan of the abdomen and pelvis done today without IV contrast if possible depending on his clinical status. I will put him on sodium bicarbonate drip for his metabolic acidosis. We will also consult Dr. Aguilar for Cardiology. An echocardiogram has been ordered. Order SCDs for deep vein thrombosis prophylaxis. We will repeat his labs tomorrow with the chest x-ray. His prognosis is poor. We will try to reach the patient's later. We will consult the wound care team also. Continue the ventilator support. We will put him on Humalog insulin sliding scale. DARNELL GUADALUPE MD DR: LAURA/[email or web address] JOB#: [id number] / [id number]
--- NOTE | 2019-10-04 11:04 | PDOC2 ---
CONSULT Date of Consult Date of Consult DATE: 10/04/19 TIME: 10:57 Reason for Consult Reason for Consult: Pneumoperitoneum Referring Physician Referring Physician: Dr. Gonzales Identification/Chief Complaint Chief Complaint none Source Source: Caregiver, Chart review History of Present Illness Reason for Visit: 79 yo M with hx of necro fas, s/p debridement at outside facility. Pt recovering at [facility]. Has been noted to have hemetemesis. Noted to be septic and seen in ER. Intubated and started on pressors. Pt seen in ICU. Nonresponsive. Past Medical History Cardiovascular: Other (AAA) CENTRAL NERVOUS SYSTEM: Dementia Endocrine: Diabetes Past Surgical History Past Surgical History: Other (debridement for nec fas (pictures reviewed and noted to have foul odor)) Family History Family History: No Significant Social History 1 pack per day ALCOHOL: other (alcohol in the past) Drugs: None Current Problem List Problem List Problems Medical Problems: (1) Anemia Status: Acute (2) Hematemesis Status: Acute (3) Hemorrhagic shock Status: Acute (4) Lactic acidemia Status: Acute (5) Metabolic acidosis Status: Acute (6) Necrotizing fasciitis Status: Acute (7) Sepsis with acute hypoxic respiratory failure Status: Acute (8) Septic shock Status: Acute Current Medications Current Medications Current Medications Pantoprazole Sodium (PROTONIX VIAL for IV PUSH) 80 mg 1X ONCE IVP Last administered on 10/03/19at 20:59; Start 10/03/19 at 20:30; Stop 10/03/19 at 20:31; Status DC Vancomycin HCl 250 ml @ 250 mls/hr 1X ONCE IV Last administered on 10/03/19at 20:59; Start 10/03/19 at 20:30; Stop 10/03/19 at 21:29; Status DC Piperacillin Sod/ Tazobactam Sod 3.375 gm/Sodium Chloride 50 ml @ 100 mls/hr 1X ONCE IV Last administered on 10/03/19at 21:20; Start 10/03/19 at 20:30; Stop 10/03/19 at 20:59; Status DC Norepinephrine Bitartrate 8 mg/ Dextrose 258 ml @ 23.22 mls/ hr 1X ONCE IV Last administered on 10/03/19at 20:40; Start 10/03/19 at 20:30; Stop 10/04/19 at 07:36; Status DC Rocuronium Tornillo (Zemuron) 100 mg 1X ONCE IV Last administered on 10/03/19at 20:51; Start 10/03/19 at 20:30; Stop 10/03/19 at 20:31; Status DC Etomidate (Amidate) 20 mg 1X ONCE IV Last administered on 10/03/19at 20:52; Start 10/03/19 at 20:30; Stop 10/03/19 at 20:31; Status DC Clindamycin Phosphate 50 ml @ 100 mls/hr 1X ONCE IV Last administered on 10/03/19at 23:15; Start 10/03/19 at 20:30; Stop 10/03/19 at 20:59; Status DC Fentanyl Citrate 30 ml @ 0 mls/hr CONT PRN IV SEE PROTOCOL Last administered on 10/04/19at 06:27; Start 10/03/19 at 21:00 Ondansetron HCl (Zofran) 4 mg PRN Q8HRS PRN IV NAUSEA/VOMITING; Start 10/03/19 at 22:15; Stop 10/04/19 at 22:14 Morphine Sulfate (Morphine Sulfate) 4 mg PRN Q2HR PRN IV PAIN; Start 10/03/19 at 22:15; Stop 10/04/19 at 22:14 Hydrocortisone Sodium Succinate (Solu-CORTEF) 100 mg Q6HRS IVP Last administered on 10/04/19at 06:02; Start 10/04/19 at 06:00 Pantoprazole Sodium (PROTONIX VIAL for IV PUSH) 40 mg DAILY IVP Last administered on 10/04/19at 08:29; Start 10/04/19 at 09:00 Epinephrine HCl 5 mg/Sodium Chloride 255 ml @ 33.66 mls/ hr CONT PRN IV SEE I/O RECORD Last administered on 10/03/19at 20:29; Start 10/03/19 at 22:45 Epinephrine HCl (EPINEPHrine SYRINGE) 1 mg 1X ONCE IV Last administered on 10/03/19at 20:54; Start 10/03/19 at 22:45; Stop 10/03/19 at 22:46; Status DC Epinephrine HCl (EPINEPHrine SYRINGE) 1 mg 1X ONCE IV Last administered on 10/03/19at 20:13; Start 10/03/19 at 22:45; Stop 10/03/19 at 22:46; Status DC Epinephrine HCl (EPINEPHrine SYRINGE) 1 mg 1X ONCE IV Last administered on 10/03/19at 20:06; Start 10/03/19 at 22:45; Stop 10/03/19 at 22:46; Status DC Sodium Chloride 1,000 ml @ 1,000 mls/hr 1X ONCE IV Last administered on 10/03/19at 19:54; Start 10/03/19 at 23:45; Stop 10/04/19 at 00:44; Status DC Sodium Chloride 1,000 ml @ 1,000 mls/hr 1X ONCE IV Last administered on 10/03/19at 20:39; Start 10/03/19 at 23:45; Stop 10/04/19 at 00:44; Status DC Sodium Chloride 1,000 ml @ 1,000 mls/hr 1X ONCE IV Last administered on 10/03/19at 21:12; Start 10/03/19 at 23:45; Stop 10/04/19 at 00:44; Status DC Sodium Chloride (Normal Saline Flush) 3 ml QSHIFT PRN IV AFTER MEDS AND BLOOD DRAWS; Start 10/04/19 at 00:45 Potassium Chloride/Dextrose/ Sod Cl 1,000 ml @ 100 mls/hr Q10H IV Last administered on 10/04/19at 01:09; Start 10/04/19 at 01:00; Stop 10/04/19 at 08:31; Status DC Norepinephrine Bitartrate 8 mg/ Dextrose 258 ml @ 21.285 mls/ hr CONT PRN IV PER PROTOCOL Last administered on 10/04/19at 08:31; Start 10/04/19 at 01:45; Stop 10/04/19 at 08:59; Status DC Etomidate (Amidate) 20 mg STK-MED ONCE IV ; Start 10/04/19 at 02:39; Stop 10/04/19 at 02:39; Status DC Rocuronium Tornillo (Zemuron) 50 mg STK-MED ONCE .ROUTE ; Start 10/04/19 at 02:39; Stop 10/04/19 at 02:39; Status DC Linezolid/Dextrose 300 ml @ 300 mls/hr Q12HR IV Last administered on 10/04/19at 08:28; Start 10/04/19 at 09:00 Piperacillin Sod/ Tazobactam Sod 3.375 gm/Sodium Chloride 50 ml @ 100 mls/hr Q6HRS IV Last administered on 10/04/19at 06:02; Start 10/04/19 at 06:00 Sodium Chloride 1,000 ml @ 1,000 mls/hr 1X ONCE IV Last administered on 10/04/19at 03:17; Start 10/04/19 at 03:15; Stop 10/04/19 at 04:14; Status DC Vasopressin 20 unit/Dextrose 101 ml @ 12 mls/hr CONT PRN IV SEE I/O RECORD Last administered on 10/04/19at 03:42; Start 10/04/19 at 03:15 Midazolam HCl 100 mg/Sodium Chloride 100 ml @ 1 mls/hr CONT PRN IV SEE I/O RECORD Last administered on 10/04/19at 03:42; Start 10/04/19 at 03:15 Micafungin Sodium 100 mg/Dextrose 100 ml @ 100 mls/hr Q24H IV Last administered on 10/04/19at 08:29; Start 10/04/19 at 09:00 Sodium Bicarbonate 100 meq/Dextrose/ Sodium Chloride 1,100 ml @ 125 mls/hr 1X ONCE IV Last administered on 10/04/19at 08:27; Start 10/04/19 at 08:00; Stop 10/04/19 at 16:47 Sodium Bicarbonate 100 meq/Dextrose/ Sodium Chloride 1,100 ml @ 100 mls/hr Q11H IV ; Start 10/04/19 at 17:00 Norepinephrine Bitartrate 32 mg/ Dextrose 250 ml @ 4.734 mls/ hr CONT PRN IV SEE I/O RECORD Last administered on 10/04/19at 09:27; Start 10/04/19 at 09:00 Insulin Human Lispro (HumaLOG) 0-6 UNITS Q6HRS SQ ; Start 10/04/19 at 12:00 Dextrose (Dextrose 50%-Water Syringe) 12.5 gm PRN Q15MIN PRN IV SEE COMMENTS; Start 10/04/19 at 09:15 Sodium Bicarbonate (Sodium Bicarb Adult 8.4% Syr) 50 meq STK-MED ONCE .ROUTE ; Start 10/04/19 at 09:28; Stop 10/04/19 at 09:28; Status DC Sodium Bicarbonate (Sodium Bicarb Adult 8.4% Syr) 50 meq 1X ONCE IV Last administered on 10/04/19at 09:48; Start 10/04/19 at 09:30; Stop 10/04/19 at 09:31; Status DC Sodium Bicarbonate (Sodium Bicarb Adult 8.4% Syr) 50 meq 1X ONCE IV Last administered on 10/04/19at 09:48; Start 10/04/19 at 09:30; Stop 10/04/19 at 09:31; Status DC Digoxin (Lanoxin) 500 mcg 1X ONCE IV Last administered on 10/04/19at 09:42; Start 10/04/19 at 09:30; Stop 10/04/19 at 09:32; Status DC Active Scripts Active Reported Seroquel (Quetiapine Fumarate) 25 Mg Tablet 1 Tab PO QHS Lasix (Furosemide) 40 Mg Tablet 1 Tab PO DAILY 30 Days Sodium Bicarbonate 650 Mg Tablet 2 Tab PO BID Seroquel (Quetiapine Fumarate) 25 Mg Tablet 0.5 Tab PO PRN Q6HRS PRN Prednisone (Prednisone) 10 Mg Tablet 2 Tab PO BID Klor-Con M20 (Potassium Chloride) 20 Meq Tab.er.prt 1 Tab PO DAILY 30 Days Zosyn 3.375 Gm Pre Mix-Bag (Sjtihrsttetz-Mvbg-Xfeewovx,Iso) 3.375 Gm/50 Ml Froz.piggy 3.375 Gm IV Q6HRS Protonix (Pantoprazole Sodium) 40 Mg Tablet. 40 Mg PO DAILYAC [Oxychlorosene Sodium] 2 Gm TOP DAILY Ondansetron HCl 4 mg/2 ml Syr (Ondansetron HCl/Pf) 4 Mg/2 Ml Syringe 4 Mg IJ PRN Q6HRS PRN Morphine-Ns 2 Mg/Ml Syringe (Morphine Sulfate In 0.9 % Nacl) 2 Mg/1 Ml Disp.syrin 4 Mg IV PRN Q4HRS PRN Lialda (Mesalamine) 1.2 Gm Tablet. 4.8 Gm PO DAILY Melatonin 3 Mg Tab.rapdis 1 Tab PO QHS PRN 30 Days Loperamide (Loperamide Hcl) 2 Mg Capsule 2 Mg PO PRN Q4HRS PRN Levothyroxine Sodium 125 Mcg Tablet 1 Tab PO DAILY [H-Rnhthd-MFZ 6-2-600] 1 Tab PO DAILY Flonase Allergy Relief (Fluticasone Propionate) 9.9 Ml [place].susp 2 Sprays NS BID Lovenox (Enoxaparin Sodium) 40 Mg/0.4 Ml Disp.syrin 40 Mg SQ DAILY Lomotil Tablet (Diphenoxylate Hcl/Atropine) 1 Each Tablet 1 Tab PO PRN BID PRN Voltaren (Diclofenac Sodium) 100 Gm Gel..gram. 1 Gm TP QID 30 Days apply to affected area(s) [Anidulafungin] 100 Mg IV Q24HR Acetaminophen 325 Mg Tablet 325 Mg PO PRN Q4HRS PRN Allergies Allergies: Coded Allergies: No Known Drug Allergies (Unverified , 10/04/19) ROS Review of System unobtainable Physical Exam General: No acute distress, Other (intubated, non responsive) HEENT: Atraumatic Abdomen: Soft, No tenderness Vitals VITALS Vital Signs Date Time Temp Pulse Resp B/P (MAP) Pulse Ox O2 Delivery O2 Flow Rate FiO2 10/04/19 10:00 126 22 138/93 (108) 96 Ventilator 10/04/19 08:00 97.7 97.7 10/03/19 19:50 3.0 Labs Labs Laboratory Tests Test 10/03/19 19:54 10/03/19 20:07 10/03/19 20:38 10/03/19 22:35 White Blood Count 30.6 x10^3/uL (4.0-11.0) Red Blood Count 2.42 x10^6/uL (4.30-5.70) Hemoglobin 7.3 g/dL (13.0-17.5) Hematocrit 23.3 % (39.0-53.0) Mean Corpuscular Volume 96 fL (79-100) Mean Corpuscular Hemoglobin 30 pg (25-35) Mean Corpuscular Hemoglobin Concent 31 g/dL (31-37) Red Cell Distribution Width 19.4 % (11.5-14.5) Platelet Count 244 x10^3/uL (140-400) Neutrophils (%) (Auto) 94 % (31-73) Lymphocytes (%) (Auto) 4 % (24-48) Monocytes (%) (Auto) 2 % (0-9) Eosinophils (%) (Auto) 0 % (0-3) Basophils (%) (Auto) 0 % (0-3) Neutrophils # (Auto) 28.6 x10^3/uL (1.8-7.7) Lymphocytes # (Auto) 1.3 x10^3/uL (1.0-4.8) Monocytes # (Auto) 0.7 x10^3/uL (0.0-1.1) Eosinophils # (Auto) 0.0 x10^3/uL (0.0-0.7) Basophils # (Auto) 0.0 x10^3/uL (0.0-0.2) Segmented Neutrophils % 73 % (35-66) Band Neutrophils % 17 % (0-9) Lymphocytes % 3 % (24-48) Monocytes % 2 % (0-10) Metamyelocytes % 3 % (0-0) Myelocytes % 2 % (0-0) Nucleated Red Blood Cells 8 Toxic Granulation Slight Platelet Estimate Adequate (ADEQUATE) Polychromasia Mod Anisocytosis Slight Prothrombin Time 21.1 SEC (11.7-14.0) Prothromb Time International Ratio 1.9 (0.8-1.1) Activated Partial Thromboplast Time 41 SEC (24-38) Fibrinogen 270 mg/dL (200-440) Sodium Level 139 mmol/L (136-145) Potassium Level 3.4 mmol/L (3.5-5.1) Chloride Level 107 mmol/L (98-107) Carbon Dioxide Level 20 mmol/L (21-32) Anion Gap 12 (6-14) Blood Urea Nitrogen 29 mg/dL (8-26) Creatinine 1.4 mg/dL (0.7-1.3) Estimated GFR (Cockcroft-Gault) 49.1 BUN/Creatinine Ratio 21 (6-20) Glucose Level 192 mg/dL (70-99) Lactic Acid Level 7.4 mmol/L (0.4-2.0) Calcium Level 8.1 mg/dL (8.5-10.1) Total Bilirubin 0.7 mg/dL (0.2-1.0) Aspartate Amino Transf (AST/SGOT) 16 U/L (15-37) Alanine Aminotransferase (ALT/SGPT) 18 U/L (16-63) Alkaline Phosphatase 157 U/L (46-116) Creatine Kinase 24 U/L (39-308) Creatine Kinase MB (Mass) 1.7 ng/mL (0.0-3.6) Creatine Kinase MB Relative Index % (0-4) Troponin I Quantitative 0.024 ng/mL (0.000-0.055) VR-Sxo-H-Type Natriuretic Peptide 3865 pg/mL (0-449) Total Protein 4.6 g/dL (6.4-8.2) Albumin 1.2 g/dL (3.4-5.0) Albumin/Globulin Ratio 0.4 (1.0-1.7) Bedside Troponin I 0.04 ng/ml (<0.08) Bedside Venous pH 7.10 (7.32-7.42) Bedside Venous pCO2 40 mmHg (41-51) Bedside Venous pO2 76 mmHg (20-40) Venous Blood HCO3 12 mmol/L (24-28) POC Venous O2 Saturation (Salvatore) 89 % Bedside FiO2 21 Ionized Calcium 1.15 mmol/L (1.13-1.32) O2 Saturation 98 % (92-99) Arterial Blood pH 7.28 (7.35-7.45) Arterial Blood pH (Temp corrected) 7.29 Arterial Blood pCO2 at Patient Temp 26 mmHg (35-46) Arterial Blood pCO2 (Temp correct) 25 mmHg Arterial Blood pO2 at Patient Temp 159 mmHg (65-108) Arterial Blood pO2 (Temp corrected) 155 mmHg Arterial Blood HCO3 12 mmol/L (21-28) Arterial Blood Base Excess -13 mmol/L (-3-3) FiO2 100 Test 10/04/19 01:20 10/04/19 08:15 White Blood Count 49.8 x10^3/uL (4.0-11.0) Red Blood Count 3.61 x10^6/uL (4.30-5.70) Hemoglobin 11.0 g/dL (13.0-17.5) Hematocrit 34.4 % (39.0-53.0) Mean Corpuscular Volume 95 fL (79-100) Mean Corpuscular Hemoglobin 30 pg (25-35) Mean Corpuscular Hemoglobin Concent 32 g/dL (31-37) Red Cell Distribution Width 17.6 % (11.5-14.5) Platelet Count 249 x10^3/uL (140-400) Neutrophils (%) (Auto) 96 % (31-73) Lymphocytes (%) (Auto) 2 % (24-48) Monocytes (%) (Auto) 2 % (0-9) Eosinophils (%) (Auto) 0 % (0-3) Basophils (%) (Auto) 0 % (0-3) Neutrophils # (Auto) 47.9 x10^3/uL (1.8-7.7) Lymphocytes # (Auto) 1.0 x10^3/uL (1.0-4.8) Monocytes # (Auto) 0.8 x10^3/uL (0.0-1.1) Eosinophils # (Auto) 0.0 x10^3/uL (0.0-0.7) Basophils # (Auto) 0.1 x10^3/uL (0.0-0.2) Sodium Level 140 mmol/L (136-145) Potassium Level 3.5 mmol/L (3.5-5.1) Chloride Level 108 mmol/L (98-107) Carbon Dioxide Level 16 mmol/L (21-32) Anion Gap 16 (6-14) Blood Urea Nitrogen 28 mg/dL (8-26) Creatinine 1.3 mg/dL (0.7-1.3) Estimated GFR (Cockcroft-Gault) 53.5 BUN/Creatinine Ratio 22 (6-20) Glucose Level 215 mg/dL (70-99) Lactic Acid Level 4.0 mmol/L (0.4-2.0) Calcium Level 7.5 mg/dL (8.5-10.1) Magnesium Level 1.8 mg/dL (1.8-2.4) Total Bilirubin 1.0 mg/dL (0.2-1.0) Aspartate Amino Transf (AST/SGOT) 32 U/L (15-37) Alanine Aminotransferase (ALT/SGPT) 20 U/L (16-63) Alkaline Phosphatase 159 U/L (46-116) Troponin I Quantitative 0.043 ng/mL (0.000-0.055) Total Protein 4.5 g/dL (6.4-8.2) Albumin 1.1 g/dL (3.4-5.0) Albumin/Globulin Ratio 0.3 (1.0-1.7) O2 Saturation 99 % (92-99) Arterial Blood pH 7.23 (7.35-7.45) Arterial Blood pCO2 at Patient Temp 29 mmHg (35-46) Arterial Blood pO2 at Patient Temp 253 mmHg (65-108) Arterial Blood HCO3 12 mmol/L (21-28) Arterial Blood Base Excess -14 mmol/L (-3-3) FiO2 80 Laboratory Tests Test 10/03/19 19:54 10/03/19 20:07 10/03/19 20:38 10/03/19 22:35 White Blood Count 30.6 x10^3/uL (4.0-11.0) Red Blood Count 2.42 x10^6/uL (4.30-5.70) Hemoglobin 7.3 g/dL (13.0-17.5) Hematocrit 23.3 % (39.0-53.0) Mean Corpuscular Volume 96 fL (79-100) Mean Corpuscular Hemoglobin 30 pg (25-35) Mean Corpuscular Hemoglobin Concent 31 g/dL (31-37) Red Cell Distribution Width 19.4 % (11.5-14.5) Platelet Count 244 x10^3/uL (140-400) Neutrophils (%) (Auto) 94 % (31-73) Lymphocytes (%) (Auto) 4 % (24-48) Monocytes (%) (Auto) 2 % (0-9) Eosinophils (%) (Auto) 0 % (0-3) Basophils (%) (Auto) 0 % (0-3) Neutrophils # (Auto) 28.6 x10^3/uL (1.8-7.7) Lymphocytes # (Auto) 1.3 x10^3/uL (1.0-4.8) Monocytes # (Auto) 0.7 x10^3/uL (0.0-1.1) Eosinophils # (Auto) 0.0 x10^3/uL (0.0-0.7) Basophils # (Auto) 0.0 x10^3/uL (0.0-0.2) Segmented Neutrophils % 73 % (35-66) Band Neutrophils % 17 % (0-9) Lymphocytes % 3 % (24-48) Monocytes % 2 % (0-10) Metamyelocytes % 3 % (0-0) Myelocytes % 2 % (0-0) Nucleated Red Blood Cells 8 Toxic Granulation Slight Platelet Estimate Adequate (ADEQUATE) Polychromasia Mod Anisocytosis Slight Prothrombin Time 21.1 SEC (11.7-14.0) Prothromb Time International Ratio 1.9 (0.8-1.1) Activated Partial Thromboplast Time 41 SEC (24-38) Fibrinogen 270 mg/dL (200-440) Sodium Level 139 mmol/L (136-145) Potassium Level 3.4 mmol/L (3.5-5.1) Chloride Level 107 mmol/L (98-107) Carbon Dioxide Level 20 mmol/L (21-32) Anion Gap 12 (6-14) Blood Urea Nitrogen 29 mg/dL (8-26) Creatinine 1.4 mg/dL (0.7-1.3) Estimated GFR (Cockcroft-Gault) 49.1 BUN/Creatinine Ratio 21 (6-20) Glucose Level 192 mg/dL (70-99) Lactic Acid Level 7.4 mmol/L (0.4-2.0) Calcium Level 8.1 mg/dL (8.5-10.1) Total Bilirubin 0.7 mg/dL (0.2-1.0) Aspartate Amino Transf (AST/SGOT) 16 U/L (15-37) Alanine Aminotransferase (ALT/SGPT) 18 U/L (16-63) Alkaline Phosphatase 157 U/L (46-116) Creatine Kinase 24 U/L (39-308) Creatine Kinase MB (Mass) 1.7 ng/mL (0.0-3.6) Creatine Kinase MB Relative Index % (0-4) Troponin I Quantitative 0.024 ng/mL (0.000-0.055) RD-Myy-J-Type Natriuretic Peptide 3865 pg/mL (0-449) Total Protein 4.6 g/dL (6.4-8.2) Albumin 1.2 g/dL (3.4-5.0) Albumin/Globulin Ratio 0.4 (1.0-1.7) Bedside Troponin I 0.04 ng/ml (<0.08) Bedside Venous pH 7.10 (7.32-7.42) Bedside Venous pCO2 40 mmHg (41-51) Bedside Venous pO2 76 mmHg (20-40) Venous Blood HCO3 12 mmol/L (24-28) POC Venous O2 Saturation (Salvatore) 89 % Bedside FiO2 21 Ionized Calcium 1.15 mmol/L (1.13-1.32) O2 Saturation 98 % (92-99) Arterial Blood pH 7.28 (7.35-7.45) Arterial Blood pH (Temp corrected) 7.29 Arterial Blood pCO2 at Patient Temp 26 mmHg (35-46) Arterial Blood pCO2 (Temp correct) 25 mmHg Arterial Blood pO2 at Patient Temp 159 mmHg (65-108) Arterial Blood pO2 (Temp corrected) 155 mmHg Arterial Blood HCO3 12 mmol/L (21-28) Arterial Blood Base Excess -13 mmol/L (-3-3) FiO2 100 Test 10/04/19 01:20 10/04/19 08:15 White Blood Count 49.8 x10^3/uL (4.0-11.0) Red Blood Count 3.61 x10^6/uL (4.30-5.70) Hemoglobin 11.0 g/dL (13.0-17.5) Hematocrit 34.4 % (39.0-53.0) Mean Corpuscular Volume 95 fL (79-100) Mean Corpuscular Hemoglobin 30 pg (25-35) Mean Corpuscular Hemoglobin Concent 32 g/dL (31-37) Red Cell Distribution Width 17.6 % (11.5-14.5) Platelet Count 249 x10^3/uL (140-400) Neutrophils (%) (Auto) 96 % (31-73) Lymphocytes (%) (Auto) 2 % (24-48) Monocytes (%) (Auto) 2 % (0-9) Eosinophils (%) (Auto) 0 % (0-3) Basophils (%) (Auto) 0 % (0-3) Neutrophils # (Auto) 47.9 x10^3/uL (1.8-7.7) Lymphocytes # (Auto) 1.0 x10^3/uL (1.0-4.8) Monocytes # (Auto) 0.8 x10^3/uL (0.0-1.1) Eosinophils # (Auto) 0.0 x10^3/uL (0.0-0.7) Basophils # (Auto) 0.1 x10^3/uL (0.0-0.2) Sodium Level 140 mmol/L (136-145) Potassium Level 3.5 mmol/L (3.5-5.1) Chloride Level 108 mmol/L (98-107) Carbon Dioxide Level 16 mmol/L (21-32) Anion Gap 16 (6-14) Blood Urea Nitrogen 28 mg/dL (8-26) Creatinine 1.3 mg/dL (0.7-1.3) Estimated GFR (Cockcroft-Gault) 53.5 BUN/Creatinine Ratio 22 (6-20) Glucose Level 215 mg/dL (70-99) Lactic Acid Level 4.0 mmol/L (0.4-2.0) Calcium Level 7.5 mg/dL (8.5-10.1) Magnesium Level 1.8 mg/dL (1.8-2.4) Total Bilirubin 1.0 mg/dL (0.2-1.0) Aspartate Amino Transf (AST/SGOT) 32 U/L (15-37) Alanine Aminotransferase (ALT/SGPT) 20 U/L (16-63) Alkaline Phosphatase 159 U/L (46-116) Troponin I Quantitative 0.043 ng/mL (0.000-0.055) Total Protein 4.5 g/dL (6.4-8.2) Albumin 1.1 g/dL (3.4-5.0) Albumin/Globulin Ratio 0.3 (1.0-1.7) O2 Saturation 99 % (92-99) Arterial Blood pH 7.23 (7.35-7.45) Arterial Blood pCO2 at Patient Temp 29 mmHg (35-46) Arterial Blood pO2 at Patient Temp 253 mmHg (65-108) Arterial Blood HCO3 12 mmol/L (21-28) Arterial Blood Base Excess -14 mmol/L (-3-3) FiO2 80 Images Images CXR/KUB with pneumoperitoneum Assessment/Plan Assessment/Plan pneumoperitoneum, favor peptic ulcer perforation given pattern on KUB and hemetemesis. Pt remains unstable for OR, or even for CT, d/w nursing. Albumin 1.1. will continue with IVF and abx with resuscitation. D/w pt's and daughter via phone. Noted pt severe illness and concern for terminal event. Pt remains unstable for OR currently. Will consider OR in AM, if pt stabilizes, but if not, they would like to consider palliation. Thanks for consult! LISSA RUSHING MD Oct 04, 2019 11:04
--- NOTE | 2019-10-04 11:10 | CONS ---
DATE OF CONSULTATION: PULMONARY CONSULTATION ATTENDING PHYSICIAN: Manish Gonzales MD REASON FOR CONSULTATION: Respiratory failure, shock. HISTORY OF PRESENT ILLNESS: The patient is a 79-year-old male who has multiple comorbid conditions. He has a history of perirectal abscess and has been at [facility] with IV antibiotics. He was brought into the hospital with chief complaint of hematemesis. He had been on IV antibiotics for necrotizing fasciitis post-perineal debridement. Patient's hemoglobin was 7.3. He was seen in the Emergency Room, he was intubated for altered mental status and shock. He is currently requiring 2 vasopressors including Levophed and vasopressin. He has CHUY as well. He has severe protein-calorie malnutrition. His chest x-ray revealed bibasilar effusions and slightly prominent vascular markings. General Surgery has been consulted and Infectious Disease has been consulted as well. I have been asked to see him for ventilator management. PAST MEDICAL HISTORY: Significant for history of hypertension, history of AAA, history of hypothyroidism, history of Crohn's, history of perirectal abscess, status post debridement at [facility]. PAST SURGICAL HISTORY: As discussed above. SOCIAL HISTORY: Unable to obtain from the patient. History of alcohol in the past. ALLERGIES: None. CURRENT MEDICATIONS: Reviewed as listed in the MRAD including vasopressors. Broad-spectrum antibiotics. REVIEW OF SYSTEMS: Unable to obtain from the patient. PHYSICAL EXAMINATION: GENERAL: He is intubated and sedated. VITAL SIGNS: Blood pressure 136/93 is the latest, he is on 2 pressors. Afebrile, pulse ox 96%. HEENT: Visual exam done due to COVID-19 suspicion. He is comfortable, in no paradoxical breathing. SKIN: With no obvious rash. EXTREMITIES: Legs with trace pitting edema. LABORATORY DATA: Reviewed. BUN is 28, creatinine 1.3. Lactic acid 4.0. Albumin 1.1. INR 1.9. White cell count 49,000, hemoglobin 11.0 and platelets are 249. IMPRESSION: 1. Acute respiratory failure secondary to septic shock and metabolic encephalopathy. 2. The patient with perirectal/gluteal abscess with possible necrotizing fasciitis status post debridement. Now has an open gaping wound and suspicion for necrosis of the tissue. CT pelvis is pending. General Surgery has been consulted and following. 3. History of Crohn's disease. 4. Abnormal chest x-ray with pleural effusion, likely related to hypoalbuminemia. 5. Severe protein-calorie malnutrition. 6. Marked leukocytosis secondary to septic shock. 7. Lactic acidosis secondary to septic shock. RECOMMENDATIONS: 1. Continue with present assist control mode. We will make necessary adjustment based on ABGs. He has currently metabolic acidosis. 2. Currently on bicarbonate drip status post 2 IV bicarbonate push as well. 3. Follow ABGs and make necessary adjustment. 4. Broad-spectrum antibiotics. Follow ID recommendation. 5. Follow General Surgery recommendation. 6. Follow renal function. 7. Follow GI recommendation. 8. Parenteral nutrition. 9. Discussed with RN and RT. The patient remains critically ill. Prognosis is guarded. We will discuss with the patient's family. Advance directives will be discussed as well. Critical care time 39 minutes. MIKE GOODEN MD DR: [email or web address] JOB#: [id number] / [id number]
[2019-10-04] MEDS: INSULIN LISPRO 300 UNITS/3 ML VIAL. SQ SCH ×3 (11:58→23:59)
--- NOTE | 2019-10-04 12:16 | NUR ---
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 Return call received, orders given to obtain a stat EKG.
--- NOTE | 2019-10-04 12:27 | CONS ---
DATE OF CONSULTATION: 10/04/2019 REQUESTING PHYSICIAN: Dr. Gonzales. REASON FOR CONSULTATION: Sepsis. HISTORY OF PRESENT ILLNESS: This is a 79-year-old gentleman who is known to me. The patient was transferred from [facility] for having coffee-ground emesis and hypotension. The patient has been there after having necrotizing fasciitis. I and D done. The patient had an ischiorectal abscess debridement done and had Prevotella, Clostridium, E. coli, Enterococcus, MSSA yeast and anaerobic gram-positive cocci. The patient was getting treatment for that at [facility] and he started yesterday having coffee-ground emesis. Hence, he was transferred. The patient is currently now intubated on a ventilator, hypotensive, requiring vasopressor support and has a white count of 49,000 with a lactic acid of up to 7.4. The patient is not able to provide any information. All information was through the patient's nurse, chart review and knowing the patient from [facility]. PAST MEDICAL HISTORY: Positive for Crohn's disease, hypertension, hypothyroidism, aortic aneurysm, possible even early dementia. The patient had necrotizing fasciitis/Shalonda's gangrene, status post incision and drainage done at [facility] and some perirectal drains in place. The patient also had developed subcutaneous emphysema in the right leg. SOCIAL HISTORY: Unable to obtain. ALLERGIES: No known drug allergies. ROS : unable to do , pt intubated. CURRENT MEDICATIONS: The patient is on linezolid, Zosyn. He received vancomycin one dose and one dose of clindamycin. PHYSICAL EXAMINATION: GENERAL: Sedated, orally intubated gentleman, not in any distress. VITAL SIGNS: Stable. The patient is on vasopressor support. Temperature 98.1, pulse 137, respirations 20, blood pressure 89/62. HEENT: Both pupils are round and reacting. No conjunctival lesion, no lesion in the mouth. NECK: Supple, no JVP, no lymphadenopathy. LUNGS: Decreased breath sounds bilaterally. HEART: S1, S2 regular. No gallop or murmur, tachycardic. ABDOMEN: Soft, nontender, no organomegaly. EXTREMITIES: Right lower extremity does have subcutaneous emphysema. There is no erythema. No cyanosis The right lower extremity is slightly warm than compared to the left lower extremity. NEUROLOGIC: The patient is now sedated, orally intubated. 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 LABORATORY DATA: White count is 49.8, hemoglobin 11.0, platelets are 249,000. BUN and creatinine is 29 and 1.4. Lactic acid up to 7.4. Blood cultures have been done. Chest x-ray is pneumoperitoneum patchy bibasilar opacity. IMPRESSION: 1. Gastrointestinal bleed. 2. Hypotension. 3. Lactic acidosis. 4. Recent Shalonda's gangrene, status post incision and drainage at [place]. 5. Right lower extremity subcutaneous air. 6. Pneumoperitoneum. suspected perforated viscus. 7. Crohn's disease. 8. Hypertension. 9. Hypothyroidism. 10. Abdominal aortic aneurysm. RECOMMENDATIONS: The patient needs a CT chest, abdomen and pelvis, supportive care. Surgery consult . We would continue Zyvox and Zosyn, add micafungin and we will continue to follow. Overall, prognosis is poor. Thank you very much, Dr. Gonzales, for giving me the opportunity to participate in this patient's care. LILLY MOREL MD DR: APRIL/josseline JOB#: [id number] / [id number] KOFFI
--- NOTE | 2019-10-04 12:37 | EKG ---
[facility] [address] [place] [address] Test Date: 2019-10-04 Test Time: 12:34:31 Pat Name: HUANG ORTEZ Department: Room: 109 1 Gender: M Product Development Consultant: CHERIE : 1940 Requested By: DEISI BABB Order Number: [id number] Reading MD: Measurements Intervals [place] Rate: 154 P: ME: QRS: -29 QRSD: 116 T: -49 QT: 302 QTc: 487 Interpretive Statements IRREGULAR RHYTHM, NO P-WAVE FOUND LEFTWARD AXIS R-S TRANSITION ZONE IN V LEADS DISPLACED TO THE RIGHT INCOMPLETE RIGHT BUNDLE BRANCH BLOCK LVH WITH REPOLARIZATION ABNORMALITY RVH WITH REPOLARIZATION ABNORMALITY ABNORMAL ECG RI6.02 Compared to ECG 10/03/2019 20:15:34 Incomplete right bundle-branch block now present Left ventricular hypertrophy now present Early repolarization now present Right ventricular hypertrophy now present Sinus tachycardia no longer present T-wave abnormality no longer present
--- NOTE | 2019-10-04 13:13 | PDOC2 ---
DEISI BABB PHYSICAL THERAPY AIDES TEACHER 10/04/19 1313: CARDIAC CONSULT DATE OF CONSULT Date of Consult DATE: 10/04/19 TIME: 1300 REASON FOR CONSULT Reason for Consult: Tachycardia REFERRING PHYSICIAN Referring Physician: Christian SOURCE Source: Chart review HISTORY OF PRESENT ILLNESS HISTORY OF PRESENT ILLNESS This is a 79 yo male admitted for GI bleed with hematemesis. He had surgery recently involving perineal necrotizing fascitis associated with gangrene carolyn/perirectal abscess and was SSH when he was noted with hematemesis with significant drop on his Hgb. Upon admission he was noted with septic shock and was treated with IVF, transfusion and antibiotics. Due to significant deterioration with multiple pressor. Further imaging revealed pneumoperitoneum prompting general surgery consult. He has been noted to be tachycardic prompting cardiology consult. Further review appears to be 2:1 flutter and later converted to AFIB RVR. No hx of arrhythmias or CAD but noted hx of AAA. PAST MEDICAL HISTORY Cardiovascular: HTN, Hyperlipidemia GI: Inflam bowel disease (chrons) Heme/Onc: Anemia NOS Musculoskeletal: Osteoarthritis Infectious disease: Other (necrotizing fascitis, gangrene carolyn) Endocrine: Hypothyroidism PAST SURGICAL HISTORY Past Surgical History: Other (perineal I & D) FAMILY HISTORY Family History: Family History Unknown SOCIAL HISTORY Smoke: No ALCOHOL: occassional Drugs: None Lives: with Family CURRENT MEDICATIONS CURRENT MEDICATIONS Current Medications Medications (Trade) Dose Ordered Sig/Miguel Route PRN Reason Start Time Stop Time Status Last Admin Dose Admin Pantoprazole Sodium (PROTONIX VIAL for IV PUSH) 80 mg 1X ONCE IVP 10/03/19 20:30 10/03/19 20:31 DC 10/03/19 20:59 Vancomycin HCl 250 ml @ 250 mls/hr 1X ONCE IV 10/03/19 20:30 10/03/19 21:29 DC 10/03/19 20:59 Piperacillin Sod/ Tazobactam Sod 3.375 gm/Sodium Chloride 50 ml @ 100 mls/hr 1X ONCE IV 10/03/19 20:30 10/03/19 20:59 DC 10/03/19 21:20 Norepinephrine Bitartrate 8 mg/ Dextrose 258 ml @ 23.22 mls/ hr 1X ONCE IV 10/03/19 20:30 10/04/19 07:36 DC 10/03/19 20:40 Rocuronium [place] (Zemuron) 100 mg 1X ONCE IV 10/03/19 20:30 10/03/19 20:31 DC 10/03/19 20:51 Etomidate (Amidate) 20 mg 1X ONCE IV 10/03/19 20:30 10/03/19 20:31 DC 10/03/19 20:52 Clindamycin Phosphate 50 ml @ 100 mls/hr 1X ONCE IV 10/03/19 20:30 10/03/19 20:59 DC 10/03/19 23:15 Fentanyl Citrate 30 ml @ 0 mls/hr CONT PRN IV SEE PROTOCOL 10/03/19 21:00 10/04/19 06:27 Hydrocortisone Sodium Succinate (Solu-CORTEF) 100 mg Q6HRS IVP 10/04/19 06:00 10/04/19 11:51 Pantoprazole Sodium (PROTONIX VIAL for IV PUSH) 40 mg DAILY IVP 10/04/19 09:00 10/04/19 08:29 Epinephrine HCl 5 mg/Sodium Chloride 255 ml @ 33.66 mls/ hr CONT PRN IV SEE I/O RECORD 10/03/19 22:45 10/03/19 20:29 Epinephrine HCl (EPINEPHrine SYRINGE) 1 mg 1X ONCE IV 10/03/19 22:45 10/03/19 22:46 DC 10/03/19 20:54 Epinephrine HCl (EPINEPHrine SYRINGE) 1 mg 1X ONCE IV 10/03/19 22:45 10/03/19 22:46 DC 10/03/19 20:13 Epinephrine HCl (EPINEPHrine SYRINGE) 1 mg 1X ONCE IV 10/03/19 22:45 10/03/19 22:46 DC 10/03/19 20:06 Sodium Chloride 1,000 ml @ 1,000 mls/hr 1X ONCE IV 10/03/19 23:45 10/04/19 00:44 DC 10/03/19 19:54 Sodium Chloride 1,000 ml @ 1,000 mls/hr 1X ONCE IV 10/03/19 23:45 10/04/19 00:44 DC 10/03/19 20:39 Sodium Chloride 1,000 ml @ 1,000 mls/hr 1X ONCE IV 10/03/19 23:45 10/04/19 00:44 DC 10/03/19 21:12 Potassium Chloride/Dextrose/ Sod Cl 1,000 ml @ 100 mls/hr Q10H IV 10/04/19 01:00 10/04/19 08:31 DC 10/04/19 01:09 Norepinephrine Bitartrate 8 mg/ Dextrose 258 ml @ 21.285 mls/ hr CONT PRN IV PER PROTOCOL 10/04/19 01:45 10/04/19 08:59 DC 10/04/19 08:31 Linezolid/Dextrose 300 ml @ 300 mls/hr Q12HR IV 10/04/19 09:00 10/04/19 08:28 Piperacillin Sod/ Tazobactam Sod 3.375 gm/Sodium Chloride 50 ml @ 100 mls/hr Q6HRS IV 10/04/19 06:00 10/04/19 11:51 Sodium Chloride 1,000 ml @ 1,000 mls/hr 1X ONCE IV 10/04/19 03:15 10/04/19 04:14 DC 10/04/19 03:17 Vasopressin 20 unit/Dextrose 101 ml @ 12 mls/hr CONT PRN IV SEE I/O RECORD 10/04/19 03:15 10/04/19 11:49 Midazolam HCl 100 mg/Sodium Chloride 100 ml @ 1 mls/hr CONT PRN IV SEE I/O RECORD 10/04/19 03:15 10/04/19 03:42 Micafungin Sodium 100 mg/Dextrose 100 ml @ 100 mls/hr Q24H IV 10/04/19 09:00 10/04/19 08:29 Sodium Bicarbonate 100 meq/Dextrose/ Sodium Chloride 1,100 ml @ 125 mls/hr 1X ONCE IV 10/04/19 08:00 10/04/19 16:47 10/04/19 08:27 Norepinephrine Bitartrate 32 mg/ Dextrose 250 ml @ 4.734 mls/ hr CONT PRN IV SEE I/O RECORD 10/04/19 09:00 10/04/19 09:27 Sodium Bicarbonate (Sodium Bicarb Adult 8.4% Syr) 50 meq 1X ONCE IV 10/04/19 09:30 10/04/19 09:31 DC 10/04/19 09:48 Sodium Bicarbonate (Sodium Bicarb Adult 8.4% Syr) 50 meq 1X ONCE IV 10/04/19 09:30 10/04/19 09:31 DC 10/04/19 09:48 Digoxin (Lanoxin) 500 mcg 1X ONCE IV 10/04/19 09:30 10/04/19 09:32 DC 10/04/19 09:42 ALLERGIES ALLERGIES: Coded Allergies: No Known Drug Allergies (Unverified , 10/04/19) ROS Review of System unobtainable, intubated PHYSICAL EXAM General: Other (edated) HEENT: Atraumatic Lungs: Other (mechanical vent) Heart: Other (AFIB) Abdomen: Other (obese) Extremities: No cyanosis Skin: Other (recent I & D of perineal abscess) Neuro: Other (sedated) MUSCULOSKELETAL: Osteoarthritic changes both hands VITALS/I&O VITALS/I&O: Vital Signs Date Time Temp Pulse Resp B/P (MAP) Pulse Ox O2 Delivery O2 Flow Rate FiO2 10/04/19 12:00 Mechanical Ventilator 10/04/19 11:02 100 10/04/19 11:00 160 22 86/68 (74) 10/04/19 08:00 97.7 97.7 10/03/19 19:50 3.0 I & O 10/03/19 10/03/19 10/04/19 15:00 23:00 07:00 Intake Total 3450 ml 1941.2 ml Output Total 175 ml Balance 3450 ml 1766.2 ml LABS Lab: Laboratory Tests Test 10/03/19 19:54 10/03/19 20:07 10/03/19 20:38 10/03/19 22:35 White Blood Count 30.6 x10^3/uL (4.0-11.0) H Red Blood Count 2.42 x10^6/uL (4.30-5.70) L Hemoglobin 7.3 g/dL (13.0-17.5) L Hematocrit 23.3 % (39.0-53.0) L Mean Corpuscular Volume 96 fL (79-100) Mean Corpuscular Hemoglobin 30 pg (25-35) Mean Corpuscular Hemoglobin Concent 31 g/dL (31-37) Red Cell Distribution Width 19.4 % (11.5-14.5) H Platelet Count 244 x10^3/uL (140-400) Neutrophils (%) (Auto) 94 % (31-73) H Lymphocytes (%) (Auto) 4 % (24-48) L Monocytes (%) (Auto) 2 % (0-9) Eosinophils (%) (Auto) 0 % (0-3) Basophils (%) (Auto) 0 % (0-3) Neutrophils # (Auto) 28.6 x10^3/uL (1.8-7.7) H Lymphocytes # (Auto) 1.3 x10^3/uL (1.0-4.8) Monocytes # (Auto) 0.7 x10^3/uL (0.0-1.1) Eosinophils # (Auto) 0.0 x10^3/uL (0.0-0.7) Basophils # (Auto) 0.0 x10^3/uL (0.0-0.2) Segmented Neutrophils % 73 % (35-66) H Band Neutrophils % 17 % (0-9) H Lymphocytes % 3 % (24-48) L Monocytes % 2 % (0-10) Metamyelocytes % 3 % (0-0) H Myelocytes % 2 % (0-0) H Nucleated Red Blood Cells 8 Toxic Granulation Slight Platelet Estimate Adequate (ADEQUATE) Polychromasia Mod Anisocytosis Slight Prothrombin Time 21.1 SEC (11.7-14.0) H Prothrombin Time INR 1.9 (0.8-1.1) H Activated Partial Thromboplast Time 41 SEC (24-38) H Fibrinogen 270 mg/dL (200-440) Sodium Level 139 mmol/L (136-145) Potassium Level 3.4 mmol/L (3.5-5.1) L Chloride Level 107 mmol/L (98-107) Carbon Dioxide Level 20 mmol/L (21-32) L Anion Gap 12 (6-14) Blood Urea Nitrogen 29 mg/dL (8-26) H Creatinine 1.4 mg/dL (0.7-1.3) H Estimated GFR (Cockcroft-Gault) 49.1 BUN/Creatinine Ratio 21 (6-20) H Glucose Level 192 mg/dL (70-99) H Lactic Acid Level 7.4 mmol/L (0.4-2.0) *H Calcium Level 8.1 mg/dL (8.5-10.1) L Total Bilirubin 0.7 mg/dL (0.2-1.0) Aspartate Amino Transferase (AST) 16 U/L (15-37) Alanine Aminotransferase (ALT) 18 U/L (16-63) Alkaline Phosphatase 157 U/L (46-116) H Creatine Kinase 24 U/L (39-308) L Creatine Kinase MB (Mass) 1.7 ng/mL (0.0-3.6) Creatine Kinase MB Relative Index % (0-4) Troponin I Quantitative 0.024 ng/mL (0.000-0.055) WB-Dlg-C-Type Natriuretic Peptide 3865 pg/mL (0-449) H Total Protein 4.6 g/dL (6.4-8.2) L Albumin 1.2 g/dL (3.4-5.0) L Albumin/Globulin Ratio 0.4 (1.0-1.7) L POC Troponin I 0.04 ng/ml (<0.08) POC Venous pH 7.10 (7.32-7.42) L POC Venous pCO2 40 mmHg (41-51) L POC Venous pO2 76 mmHg (20-40) H Venous Blood HCO3 12 mmol/L (24-28) L POC Venous O2 Saturation (Salvatore) 89 % POC FiO2 21 Ionized Calcium 1.15 mmol/L (1.13-1.32) O2 Saturation 98 % (92-99) Arterial Blood pH 7.28 (7.35-7.45) L Arterial Blood pH (Temp corrected) 7.29 Arterial Blood pCO2 at Patient Temp 26 mmHg (35-46) L Arterial Blood pCO2 (Temp correct) 25 mmHg Arterial Blood pO2 at Patient Temp 159 mmHg (65-108) H Arterial Blood pO2 (Temp corrected) 155 mmHg Arterial Blood HCO3 12 mmol/L (21-28) L Arterial Blood Base Excess -13 mmol/L (-3-3) L FiO2 100 Test 10/04/19 01:20 10/04/19 08:15 10/04/19 09:16 10/04/19 11:57 White Blood Count 49.8 x10^3/uL (4.0-11.0) *H Red Blood Count 3.61 x10^6/uL (4.30-5.70) L Hemoglobin 11.0 g/dL (13.0-17.5) #L Hematocrit 34.4 % (39.0-53.0) L Mean Corpuscular Volume 95 fL (79-100) Mean Corpuscular Hemoglobin 30 pg (25-35) Mean Corpuscular Hemoglobin Concent 32 g/dL (31-37) Red Cell Distribution Width 17.6 % (11.5-14.5) H Platelet Count 249 x10^3/uL (140-400) Neutrophils (%) (Auto) 96 % (31-73) H Lymphocytes (%) (Auto) 2 % (24-48) L Monocytes (%) (Auto) 2 % (0-9) Eosinophils (%) (Auto) 0 % (0-3) Basophils (%) (Auto) 0 % (0-3) Neutrophils # (Auto) 47.9 x10^3/uL (1.8-7.7) H Lymphocytes # (Auto) 1.0 x10^3/uL (1.0-4.8) Monocytes # (Auto) 0.8 x10^3/uL (0.0-1.1) Eosinophils # (Auto) 0.0 x10^3/uL (0.0-0.7) Basophils # (Auto) 0.1 x10^3/uL (0.0-0.2) Sodium Level 140 mmol/L (136-145) Potassium Level 3.5 mmol/L (3.5-5.1) Chloride Level 108 mmol/L (98-107) H Carbon Dioxide Level 16 mmol/L (21-32) L Anion Gap 16 (6-14) H Blood Urea Nitrogen 28 mg/dL (8-26) H Creatinine 1.3 mg/dL (0.7-1.3) Estimated GFR (Cockcroft-Gault) 53.5 BUN/Creatinine Ratio 22 (6-20) H Glucose Level 215 mg/dL (70-99) H Lactic Acid Level 4.0 mmol/L (0.4-2.0) *H Calcium Level 7.5 mg/dL (8.5-10.1) L Magnesium Level 1.8 mg/dL (1.8-2.4) Total Bilirubin 1.0 mg/dL (0.2-1.0) Aspartate Amino Transferase (AST) 32 U/L (15-37) Alanine Aminotransferase (ALT) 20 U/L (16-63) Alkaline Phosphatase 159 U/L (46-116) H Troponin I Quantitative 0.043 ng/mL (0.000-0.055) Total Protein 4.5 g/dL (6.4-8.2) L Albumin 1.1 g/dL (3.4-5.0) L Albumin/Globulin Ratio 0.3 (1.0-1.7) L O2 Saturation 99 % (92-99) Arterial Blood pH 7.23 (7.35-7.45) L Arterial Blood pCO2 at Patient Temp 29 mmHg (35-46) L Arterial Blood pO2 at Patient Temp 253 mmHg (65-108) H Arterial Blood HCO3 12 mmol/L (21-28) L Arterial Blood Base Excess -14 mmol/L (-3-3) L FiO2 80 SARS-CoV-2 Antigen (Rapid) Negative (NEGATIVE) Glucose (Fingerstick) 233 mg/dL (70-99) H Laboratory Tests 10/03/19 19:54 10/04/19 01:20 Laboratory Tests 10/03/19 19:54 10/04/19 01:20 ASSESSMENT/PLAN ASSESSMENT/PLAN 1. Arrhythmia: appears to be in 2:1 atrial flutter now EKG noted with AFIB with new RBBB. Prelim EF at 60% without RV dilation 2. Sepsis/shock 3. GI bleed with hematemesis and penumoperitoneum: General surgery following 4. Acute respiratory failure with above culprits: intubated/vent 5. CHUY 6. Anemia coagulopathy: post transfusion with INR at 1.9 7. Severe protein malnutrition 8. Recent perineal surgery for necrotizing fasciitis/Carolyn's gangrene 9. Hx of chrons: recently noted 06/2019 10. Hx of AAA: unclear details 11. Hypothyroidism: on replacement Recommendations On levophed and vasopressin. Digoxin x1. addl PRN. If remains in RVR then titrate up levophed to accommodate amiodarone protocol. Await CT abd when more hemodynamically stable. Discussed with primary pot press operator. Discussed plan with RN Awaiting covid PCR, for potential surgery Poor prognosis Supportive care MALLORIE SOTO MD 10/04/19 8966: CARDIAC CONSULT ASSESSMENT/PLAN ASSESSMENT/PLAN Patient seen and examined Discussed with our nurse practitioner and agree with his assessment and plan. Septic shock. On pressors including Levophed and vasopressin. Being evaluated by the surgical service. Arrhythmias. Most recent EKG suggested atrial fibrillation. Has been treated with ID digoxin due to his borderline blood pressure. Preliminary echo results show intact LV function. Will consider amiodarone later today if the patient's blood pressure can tolerate it. GI bleed with hematemesis and pneumo peritoneum. Surgery following as above. Recent perineal surgery for necrotizing fasciitis. History of Crohn's disease. History of a abdominal aortic aneurysm. Will check further details. Patient is critically ill. Continuing work-up and treatment as above. DEISI BABB APRN Oct 04, 2019 13:13 MALLORIE SOTO MD Oct 04, 2019 16:45
--- NOTE | 2019-10-04 13:27 | CARD ---
MR#: [id number] Date of Study: 10/04/2019 Ordering Physician: DEISI BABB, Referring Physician: DEISI BABB, Tech: Nelly Rosales APPROVED REPORT EXAM: Two-dimensional and M-mode echocardiogram with Doppler and color Doppler. Other Information Quality : Technically LimitedHR: 155bpm Rhythm : TachycardiaTechnically limited study due to Rapid heart rate over 150 bpm INDICATION Sepsis, RV Dilation, Tachycardia 2D DIMENSIONS Aortic Root(2D)4.1 (2.0-3.7cm) LEFT VENTRICLE The left ventricle is normal size. Hyperdynamic left ventricular systolic function. The ejection frac tion is >75%. There is normal LV segmental wall motion. RIGHT VENTRICLE The right ventricle is slightly enlarged. The right ventricular systolic function is normal. GREAT VESSELS The aortic root is mildly enlarged measuring 4.1 cm. The IVC is normal in size and collapses >50% wit h inspiration. PERICARDIAL EFFUSION Left pleural effusion. There is no evidence of significant pericardial effusion. Critical Notification Critical Value: No <Conclusion> Technically very difficult limited 2D echo. Hyperdynamic left ventricular systolic function. The ejection fraction is >75%. There is normal LV segmental wall motion. There is no evidence of significant pericardial effusion. Signed by : Mason Aguilar, Electronically Approved : 10/04/2019 13:27:13
--- NOTE | 2019-10-04 14:10 | PDOC ---
Provider Note Provider Note spoke with about poor prognosis and current diagnosis and medical problems and treatment. she wants to keep him a full code for now but will reconsider code status in 1 to 2 days depending on his hospital course. DARNELL GUADALUPE MD Oct 04, 2019 14:10
--- NOTE | 2019-10-04 14:15 | PDOC2 ---
CONSULT Date of Consult Date of Consult DATE: 10/04/19 TIME: 14:07 Reason for Consult Reason for Consult: CHUY Referring Physician Referring Physician: COLLINS Identification/Chief Complaint Chief Complaint SEPSIS Source Source: Chart review History of Present Illness Reason for Visit: THIS IS A 79 YR OLD WITH HYPOTENSION AND COFFEE GROUND EMESIS. HAS BEEN AT [facility] FOR ONGOING TX OF HIS NECROTIZING FASCITIS AND HAS HAD I&D AT [facility] PRIOR TO TRANSFER TO , IN THE RECTAL AREA. NOW SEPSIS WITH HIGH WBC AND HYPOTENSION NEEDING PRESSORS AND HE IS INTUBATED FOR ACUTE RESP FAILURE. HE HAS CHUY WITH DECREASED UO AND A CR OF 1.4. NO KNOWN CKD IS NOTED. UO NOMINAL WITH BENZ IN PLACE. PT IS CRITICALLY ILL. ALSO NOTED TO HAVE MET ACIDOSIS WITH ACIDEMIA Past Medical History Cardiovascular: Other (AAA) CENTRAL NERVOUS SYSTEM: Dementia Endocrine: Diabetes Past Surgical History Past Surgical History: Other (debridement for nec fas (pictures reviewed and noted to have foul odor)) Family History Family History: No Significant Social History 1 pack per day ALCOHOL: other (alcohol in the past) Drugs: None Current Problem List Problem List Problems Medical Problems: (1) Anemia Status: Acute (2) Hematemesis Status: Acute (3) Hemorrhagic shock Status: Acute (4) Lactic acidemia Status: Acute (5) Metabolic acidosis Status: Acute (6) Necrotizing fasciitis Status: Acute (7) Sepsis with acute hypoxic respiratory failure Status: Acute (8) Septic shock Status: Acute Current Medications Current Medications Current Medications Pantoprazole Sodium (PROTONIX VIAL for IV PUSH) 80 mg 1X ONCE IVP Last administered on 10/03/19at 20:59; Start 10/03/19 at 20:30; Stop 10/03/19 at 20:31; Status DC Vancomycin HCl 250 ml @ 250 mls/hr 1X ONCE IV Last administered on 10/03/19at 20:59; Start 10/03/19 at 20:30; Stop 10/03/19 at 21:29; Status DC Piperacillin Sod/ Tazobactam Sod 3.375 gm/Sodium Chloride 50 ml @ 100 mls/hr 1X ONCE IV Last administered on 10/03/19at 21:20; Start 10/03/19 at 20:30; Stop 10/03/19 at 20:59; Status DC Norepinephrine Bitartrate 8 mg/ Dextrose 258 ml @ 23.22 mls/ hr 1X ONCE IV Last administered on 10/03/19at 20:40; Start 10/03/19 at 20:30; Stop 10/04/19 at 07:36; Status DC Rocuronium [place] (Zemuron) 100 mg 1X ONCE IV Last administered on 10/03/19at 20:51; Start 10/03/19 at 20:30; Stop 10/03/19 at 20:31; Status DC Etomidate (Amidate) 20 mg 1X ONCE IV Last administered on 10/03/19at 20:52; Start 10/03/19 at 20:30; Stop 10/03/19 at 20:31; Status DC Clindamycin Phosphate 50 ml @ 100 mls/hr 1X ONCE IV Last administered on 10/03/19at 23:15; Start 10/03/19 at 20:30; Stop 10/03/19 at 20:59; Status DC Fentanyl Citrate 30 ml @ 0 mls/hr CONT PRN IV SEE PROTOCOL Last administered on 10/04/19at 06:27; Start 10/03/19 at 21:00 Ondansetron HCl (Zofran) 4 mg PRN Q8HRS PRN IV NAUSEA/VOMITING; Start 10/03/19 at 22:15; Stop 10/04/19 at 22:14 Morphine Sulfate (Morphine Sulfate) 4 mg PRN Q2HR PRN IV PAIN; Start 10/03/19 at 22:15; Stop 10/04/19 at 22:14 Hydrocortisone Sodium Succinate (Solu-CORTEF) 100 mg Q6HRS IVP Last administered on 10/04/19at 11:51; Start 10/04/19 at 06:00 Pantoprazole Sodium (PROTONIX VIAL for IV PUSH) 40 mg DAILY IVP Last administered on 10/04/19at 08:29; Start 10/04/19 at 09:00; Stop 10/04/19 at 13:57; Status DC Epinephrine HCl 5 mg/Sodium Chloride 255 ml @ 33.66 mls/ hr CONT PRN IV SEE I/O RECORD Last administered on 10/03/19at 20:29; Start 10/03/19 at 22:45 Epinephrine HCl (EPINEPHrine SYRINGE) 1 mg 1X ONCE IV Last administered on 10/03/19at 20:54; Start 10/03/19 at 22:45; Stop 10/03/19 at 22:46; Status DC Epinephrine HCl (EPINEPHrine SYRINGE) 1 mg 1X ONCE IV Last administered on 10/03/19at 20:13; Start 10/03/19 at 22:45; Stop 10/03/19 at 22:46; Status DC Epinephrine HCl (EPINEPHrine SYRINGE) 1 mg 1X ONCE IV Last administered on 10/03/19at 20:06; Start 10/03/19 at 22:45; Stop 10/03/19 at 22:46; Status DC Sodium Chloride 1,000 ml @ 1,000 mls/hr 1X ONCE IV Last administered on 10/03/19at 19:54; Start 10/03/19 at 23:45; Stop 10/04/19 at 00:44; Status DC Sodium Chloride 1,000 ml @ 1,000 mls/hr 1X ONCE IV Last administered on 10/03/19at 20:39; Start 10/03/19 at 23:45; Stop 10/04/19 at 00:44; Status DC Sodium Chloride 1,000 ml @ 1,000 mls/hr 1X ONCE IV Last administered on 10/03/19at 21:12; Start 10/03/19 at 23:45; Stop 10/04/19 at 00:44; Status DC Sodium Chloride (Normal Saline Flush) 3 ml QSHIFT PRN IV AFTER MEDS AND BLOOD DRAWS; Start 10/04/19 at 00:45 Potassium Chloride/Dextrose/ Sod Cl 1,000 ml @ 100 mls/hr Q10H IV Last administered on 10/04/19at 01:09; Start 10/04/19 at 01:00; Stop 10/04/19 at 08:31; Status DC Norepinephrine Bitartrate 8 mg/ Dextrose 258 ml @ 21.285 mls/ hr CONT PRN IV PER PROTOCOL Last administered on 10/04/19at 08:31; Start 10/04/19 at 01:45; Stop 10/04/19 at 08:59; Status DC Etomidate (Amidate) 20 mg STK-MED ONCE IV ; Start 10/04/19 at 02:39; Stop 10/04/19 at 02:39; Status DC Rocuronium [place] (Zemuron) 50 mg STK-MED ONCE .ROUTE ; Start 10/04/19 at 02:39; Stop 10/04/19 at 02:39; Status DC Linezolid/Dextrose 300 ml @ 300 mls/hr Q12HR IV Last administered on 10/04/19at 08:28; Start 10/04/19 at 09:00 Piperacillin Sod/ Tazobactam Sod 3.375 gm/Sodium Chloride 50 ml @ 100 mls/hr Q6HRS IV Last administered on 10/04/19at 11:51; Start 10/04/19 at 06:00 Sodium Chloride 1,000 ml @ 1,000 mls/hr 1X ONCE IV Last administered on 10/04/19at 03:17; Start 10/04/19 at 03:15; Stop 10/04/19 at 04:14; Status DC Vasopressin 20 unit/Dextrose 101 ml @ 12 mls/hr CONT PRN IV SEE I/O RECORD Last administered on 10/04/19at 11:49; Start 10/04/19 at 03:15 Midazolam HCl 100 mg/Sodium Chloride 100 ml @ 1 mls/hr CONT PRN IV SEE I/O RECORD Last administered on 10/04/19at 03:42; Start 10/04/19 at 03:15 Micafungin Sodium 100 mg/Dextrose 100 ml @ 100 mls/hr Q24H IV Last administered on 10/04/19at 08:29; Start 10/04/19 at 09:00 Sodium Bicarbonate 100 meq/Dextrose/ Sodium Chloride 1,100 ml @ 125 mls/hr 1X ONCE IV Last administered on 10/04/19at 08:27; Start 10/04/19 at 08:00; Stop 10/04/19 at 16:47 Sodium Bicarbonate 100 meq/Dextrose/ Sodium Chloride 1,100 ml @ 100 mls/hr Q11H IV ; Start 10/04/19 at 17:00 Norepinephrine Bitartrate 32 mg/ Dextrose 250 ml @ 4.734 mls/ hr CONT PRN IV SEE I/O RECORD Last administered on 10/04/19at 09:27; Start 10/04/19 at 09:00 Insulin Human Lispro (HumaLOG) 0-6 UNITS Q6HRS SQ ; Start 10/04/19 at 12:00 Dextrose (Dextrose 50%-Water Syringe) 12.5 gm PRN Q15MIN PRN IV SEE COMMENTS; Start 10/04/19 at 09:15 Sodium Bicarbonate (Sodium Bicarb Adult 8.4% Syr) 50 meq STK-MED ONCE .ROUTE ; Start 10/04/19 at 09:28; Stop 10/04/19 at 09:28; Status DC Sodium Bicarbonate (Sodium Bicarb Adult 8.4% Syr) 50 meq 1X ONCE IV Last administered on 10/04/19at 09:48; Start 10/04/19 at 09:30; Stop 10/04/19 at 09:31; Status DC Sodium Bicarbonate (Sodium Bicarb Adult 8.4% Syr) 50 meq 1X ONCE IV Last administered on 10/04/19at 09:48; Start 10/04/19 at 09:30; Stop 10/04/19 at 09:31; Status DC Digoxin (Lanoxin) 500 mcg 1X ONCE IV Last administered on 10/04/19at 09:42; Start 10/04/19 at 09:30; Stop 10/04/19 at 09:32; Status DC Digoxin (Lanoxin) 250 mcg 1X ONCE IV Last administered on 10/04/19at 13:25; Start 10/04/19 at 13:15; Stop 10/04/19 at 13:16; Status DC Pantoprazole Sodium (PROTONIX VIAL for IV PUSH) 40 mg BID IVP ; Start 10/04/19 at 21:00 Active Scripts Active Reported Seroquel (Quetiapine Fumarate) 25 Mg Tablet 1 Tab PO QHS Lasix (Furosemide) 40 Mg Tablet 1 Tab PO DAILY 30 Days Sodium Bicarbonate 650 Mg Tablet 2 Tab PO BID Seroquel (Quetiapine Fumarate) 25 Mg Tablet 0.5 Tab PO PRN Q6HRS PRN Prednisone (Prednisone) 10 Mg Tablet 2 Tab PO BID Klor-Con M20 (Potassium Chloride) 20 Meq Tab.er.prt 1 Tab PO DAILY 30 Days Zosyn 3.375 Gm Pre Mix-Bag (Jfgudqljkrtg-Tnjy-Qigmakry,Iso) 3.375 Gm/50 Ml Froz.piggy 3.375 Gm IV Q6HRS Protonix (Pantoprazole Sodium) 40 Mg Tablet.dr 40 Mg PO DAILYAC [Oxychlorosene Sodium] 2 Gm TOP DAILY Ondansetron HCl 4 mg/2 ml Syr (Ondansetron HCl/Pf) 4 Mg/2 Ml Syringe 4 Mg IJ PRN Q6HRS PRN Morphine-Ns 2 Mg/Ml Syringe (Morphine Sulfate In 0.9 % Nacl) 2 Mg/1 Ml Disp.syrin 4 Mg IV PRN Q4HRS PRN Lialda (Mesalamine) 1.2 Gm Tablet.dr 4.8 Gm PO DAILY Melatonin 3 Mg Tab.rapdis 1 Tab PO QHS PRN 30 Days Loperamide (Loperamide Hcl) 2 Mg Capsule 2 Mg PO PRN Q4HRS PRN Levothyroxine Sodium 125 Mcg Tablet 1 Tab PO DAILY [J-Zrfxpt-GCM 6-2-600] 1 Tab PO DAILY Flonase Allergy Relief (Fluticasone Propionate) 9.9 Ml [place].susp 2 Sprays NS BID Lovenox (Enoxaparin Sodium) 40 Mg/0.4 Ml Disp.syrin 40 Mg SQ DAILY Lomotil Tablet (Diphenoxylate Hcl/Atropine) 1 Each Tablet 1 Tab PO PRN BID PRN Voltaren (Diclofenac Sodium) 100 Gm Gel..gram. 1 Gm TP QID 30 Days apply to affected area(s) [Anidulafungin] 100 Mg IV Q24HR Acetaminophen 325 Mg Tablet 325 Mg PO PRN Q4HRS PRN Allergies Allergies: Coded Allergies: No Known Drug Allergies (Unverified , 10/04/19) ROS Review of System UNABLE TO OBTAIN Physical Exam Physical Exam BENZ General: Other (SEDATED) HEENT: Atraumatic, Other (ETT, OGT) Lungs: Clear to auscultation Heart: Regular rate, Normal S2 Abdomen: Normal bowel sounds Extremities: No cyanosis Skin: No breakdown Neuro: Other (SEDATED) MUSCULOSKELETAL: Other (SEDATED) Vitals VITALS Vital Signs Date Time Temp Pulse Resp B/P (MAP) Pulse Ox O2 Delivery O2 Flow Rate FiO2 10/04/19 14:00 160 22 105/59 (74) 99 Ventilator 10/04/19 12:00 98.8 98.8 10/03/19 19:50 3.0 Labs Labs Laboratory Tests Test 10/03/19 19:54 10/03/19 20:07 10/03/19 20:38 10/03/19 22:35 White Blood Count 30.6 x10^3/uL (4.0-11.0) Red Blood Count 2.42 x10^6/uL (4.30-5.70) Hemoglobin 7.3 g/dL (13.0-17.5) Hematocrit 23.3 % (39.0-53.0) Mean Corpuscular Volume 96 fL (79-100) Mean Corpuscular Hemoglobin 30 pg (25-35) Mean Corpuscular Hemoglobin Concent 31 g/dL (31-37) Red Cell Distribution Width 19.4 % (11.5-14.5) Platelet Count 244 x10^3/uL (140-400) Neutrophils (%) (Auto) 94 % (31-73) Lymphocytes (%) (Auto) 4 % (24-48) Monocytes (%) (Auto) 2 % (0-9) Eosinophils (%) (Auto) 0 % (0-3) Basophils (%) (Auto) 0 % (0-3) Neutrophils # (Auto) 28.6 x10^3/uL (1.8-7.7) Lymphocytes # (Auto) 1.3 x10^3/uL (1.0-4.8) Monocytes # (Auto) 0.7 x10^3/uL (0.0-1.1) Eosinophils # (Auto) 0.0 x10^3/uL (0.0-0.7) Basophils # (Auto) 0.0 x10^3/uL (0.0-0.2) Segmented Neutrophils % 73 % (35-66) Band Neutrophils % 17 % (0-9) Lymphocytes % 3 % (24-48) Monocytes % 2 % (0-10) Metamyelocytes % 3 % (0-0) Myelocytes % 2 % (0-0) Nucleated Red Blood Cells 8 Toxic Granulation Slight Platelet Estimate Adequate (ADEQUATE) Polychromasia Mod Anisocytosis Slight Prothrombin Time 21.1 SEC (11.7-14.0) Prothromb Time International Ratio 1.9 (0.8-1.1) Activated Partial Thromboplast Time 41 SEC (24-38) Fibrinogen 270 mg/dL (200-440) Sodium Level 139 mmol/L (136-145) Potassium Level 3.4 mmol/L (3.5-5.1) Chloride Level 107 mmol/L (98-107) Carbon Dioxide Level 20 mmol/L (21-32) Anion Gap 12 (6-14) Blood Urea Nitrogen 29 mg/dL (8-26) Creatinine 1.4 mg/dL (0.7-1.3) Estimated GFR (Cockcroft-Gault) 49.1 BUN/Creatinine Ratio 21 (6-20) Glucose Level 192 mg/dL (70-99) Lactic Acid Level 7.4 mmol/L (0.4-2.0) Calcium Level 8.1 mg/dL (8.5-10.1) Total Bilirubin 0.7 mg/dL (0.2-1.0) Aspartate Amino Transf (AST/SGOT) 16 U/L (15-37) Alanine Aminotransferase (ALT/SGPT) 18 U/L (16-63) Alkaline Phosphatase 157 U/L (46-116) Creatine Kinase 24 U/L (39-308) Creatine Kinase MB (Mass) 1.7 ng/mL (0.0-3.6) Creatine Kinase MB Relative Index % (0-4) Troponin I Quantitative 0.024 ng/mL (0.000-0.055) PP-Qmo-N-Type Natriuretic Peptide 3865 pg/mL (0-449) Total Protein 4.6 g/dL (6.4-8.2) Albumin 1.2 g/dL (3.4-5.0) Albumin/Globulin Ratio 0.4 (1.0-1.7) Bedside Troponin I 0.04 ng/ml (<0.08) Bedside Venous pH 7.10 (7.32-7.42) Bedside Venous pCO2 40 mmHg (41-51) Bedside Venous pO2 76 mmHg (20-40) Venous Blood HCO3 12 mmol/L (24-28) POC Venous O2 Saturation (Salvatore) 89 % Bedside FiO2 21 Ionized Calcium 1.15 mmol/L (1.13-1.32) O2 Saturation 98 % (92-99) Arterial Blood pH 7.28 (7.35-7.45) Arterial Blood pH (Temp corrected) 7.29 Arterial Blood pCO2 at Patient Temp 26 mmHg (35-46) Arterial Blood pCO2 (Temp correct) 25 mmHg Arterial Blood pO2 at Patient Temp 159 mmHg (65-108) Arterial Blood pO2 (Temp corrected) 155 mmHg Arterial Blood HCO3 12 mmol/L (21-28) Arterial Blood Base Excess -13 mmol/L (-3-3) FiO2 100 Test 10/04/19 01:20 10/04/19 08:15 10/04/19 09:16 10/04/19 11:57 White Blood Count 49.8 x10^3/uL (4.0-11.0) Red Blood Count 3.61 x10^6/uL (4.30-5.70) Hemoglobin 11.0 g/dL (13.0-17.5) Hematocrit 34.4 % (39.0-53.0) Mean Corpuscular Volume 95 fL (79-100) Mean Corpuscular Hemoglobin 30 pg (25-35) Mean Corpuscular Hemoglobin Concent 32 g/dL (31-37) Red Cell Distribution Width 17.6 % (11.5-14.5) Platelet Count 249 x10^3/uL (140-400) Neutrophils (%) (Auto) 96 % (31-73) Lymphocytes (%) (Auto) 2 % (24-48) Monocytes (%) (Auto) 2 % (0-9) Eosinophils (%) (Auto) 0 % (0-3) Basophils (%) (Auto) 0 % (0-3) Neutrophils # (Auto) 47.9 x10^3/uL (1.8-7.7) Lymphocytes # (Auto) 1.0 x10^3/uL (1.0-4.8) Monocytes # (Auto) 0.8 x10^3/uL (0.0-1.1) Eosinophils # (Auto) 0.0 x10^3/uL (0.0-0.7) Basophils # (Auto) 0.1 x10^3/uL (0.0-0.2) Sodium Level 140 mmol/L (136-145) Potassium Level 3.5 mmol/L (3.5-5.1) Chloride Level 108 mmol/L (98-107) Carbon Dioxide Level 16 mmol/L (21-32) Anion Gap 16 (6-14) Blood Urea Nitrogen 28 mg/dL (8-26) Creatinine 1.3 mg/dL (0.7-1.3) Estimated GFR (Cockcroft-Gault) 53.5 BUN/Creatinine Ratio 22 (6-20) Glucose Level 215 mg/dL (70-99) Lactic Acid Level 4.0 mmol/L (0.4-2.0) Calcium Level 7.5 mg/dL (8.5-10.1) Magnesium Level 1.8 mg/dL (1.8-2.4) Total Bilirubin 1.0 mg/dL (0.2-1.0) Aspartate Amino Transf (AST/SGOT) 32 U/L (15-37) Alanine Aminotransferase (ALT/SGPT) 20 U/L (16-63) Alkaline Phosphatase 159 U/L (46-116) Troponin I Quantitative 0.043 ng/mL (0.000-0.055) Total Protein 4.5 g/dL (6.4-8.2) Albumin 1.1 g/dL (3.4-5.0) Albumin/Globulin Ratio 0.3 (1.0-1.7) O2 Saturation 99 % (92-99) Arterial Blood pH 7.23 (7.35-7.45) Arterial Blood pCO2 at Patient Temp 29 mmHg (35-46) Arterial Blood pO2 at Patient Temp 253 mmHg (65-108) Arterial Blood HCO3 12 mmol/L (21-28) Arterial Blood Base Excess -14 mmol/L (-3-3) FiO2 80 SARS-CoV-2 Antigen (Rapid) Negative (NEGATIVE) Glucose (Fingerstick) 233 mg/dL (70-99) Laboratory Tests Test 10/03/19 19:54 10/03/19 20:07 10/03/19 20:38 10/03/19 22:35 White Blood Count 30.6 x10^3/uL (4.0-11.0) Red Blood Count 2.42 x10^6/uL (4.30-5.70) Hemoglobin 7.3 g/dL (13.0-17.5) Hematocrit 23.3 % (39.0-53.0) Mean Corpuscular Volume 96 fL (79-100) Mean Corpuscular Hemoglobin 30 pg (25-35) Mean Corpuscular Hemoglobin Concent 31 g/dL (31-37) Red Cell Distribution Width 19.4 % (11.5-14.5) Platelet Count 244 x10^3/uL (140-400) Neutrophils (%) (Auto) 94 % (31-73) Lymphocytes (%) (Auto) 4 % (24-48) Monocytes (%) (Auto) 2 % (0-9) Eosinophils (%) (Auto) 0 % (0-3) Basophils (%) (Auto) 0 % (0-3) Neutrophils # (Auto) 28.6 x10^3/uL (1.8-7.7) Lymphocytes # (Auto) 1.3 x10^3/uL (1.0-4.8) Monocytes # (Auto) 0.7 x10^3/uL (0.0-1.1) Eosinophils # (Auto) 0.0 x10^3/uL (0.0-0.7) Basophils # (Auto) 0.0 x10^3/uL (0.0-0.2) Segmented Neutrophils % 73 % (35-66) Band Neutrophils % 17 % (0-9) Lymphocytes % 3 % (24-48) Monocytes % 2 % (0-10) Metamyelocytes % 3 % (0-0) Myelocytes % 2 % (0-0) Nucleated Red Blood Cells 8 Toxic Granulation Slight Platelet Estimate Adequate (ADEQUATE) Polychromasia Mod Anisocytosis Slight Prothrombin Time 21.1 SEC (11.7-14.0) Prothromb Time International Ratio 1.9 (0.8-1.1) Activated Partial Thromboplast Time 41 SEC (24-38) Fibrinogen 270 mg/dL (200-440) Sodium Level 139 mmol/L (136-145) Potassium Level 3.4 mmol/L (3.5-5.1) Chloride Level 107 mmol/L (98-107) Carbon Dioxide Level 20 mmol/L (21-32) Anion Gap 12 (6-14) Blood Urea Nitrogen 29 mg/dL (8-26) Creatinine 1.4 mg/dL (0.7-1.3) Estimated GFR (Cockcroft-Gault) 49.1 BUN/Creatinine Ratio 21 (6-20) Glucose Level 192 mg/dL (70-99) Lactic Acid Level 7.4 mmol/L (0.4-2.0) Calcium Level 8.1 mg/dL (8.5-10.1) Total Bilirubin 0.7 mg/dL (0.2-1.0) Aspartate Amino Transf (AST/SGOT) 16 U/L (15-37) Alanine Aminotransferase (ALT/SGPT) 18 U/L (16-63) Alkaline Phosphatase 157 U/L (46-116) Creatine Kinase 24 U/L (39-308) Creatine Kinase MB (Mass) 1.7 ng/mL (0.0-3.6) Creatine Kinase MB Relative Index % (0-4) Troponin I Quantitative 0.024 ng/mL (0.000-0.055) KQ-Qsp-G-Type Natriuretic Peptide 3865 pg/mL (0-449) Total Protein 4.6 g/dL (6.4-8.2) Albumin 1.2 g/dL (3.4-5.0) Albumin/Globulin Ratio 0.4 (1.0-1.7) Bedside Troponin I 0.04 ng/ml (<0.08) Bedside Venous pH 7.10 (7.32-7.42) Bedside Venous pCO2 40 mmHg (41-51) Bedside Venous pO2 76 mmHg (20-40) Venous Blood HCO3 12 mmol/L (24-28) POC Venous O2 Saturation (Salvatore) 89 % Bedside FiO2 21 Ionized Calcium 1.15 mmol/L (1.13-1.32) O2 Saturation 98 % (92-99) Arterial Blood pH 7.28 (7.35-7.45) Arterial Blood pH (Temp corrected) 7.29 Arterial Blood pCO2 at Patient Temp 26 mmHg (35-46) Arterial Blood pCO2 (Temp correct) 25 mmHg Arterial Blood pO2 at Patient Temp 159 mmHg (65-108) Arterial Blood pO2 (Temp corrected) 155 mmHg Arterial Blood HCO3 12 mmol/L (21-28) Arterial Blood Base Excess -13 mmol/L (-3-3) FiO2 100 Test 10/04/19 01:20 10/04/19 08:15 10/04/19 09:16 10/04/19 11:57 White Blood Count 49.8 x10^3/uL (4.0-11.0) Red Blood Count 3.61 x10^6/uL (4.30-5.70) Hemoglobin 11.0 g/dL (13.0-17.5) Hematocrit 34.4 % (39.0-53.0) Mean Corpuscular Volume 95 fL (79-100) Mean Corpuscular Hemoglobin 30 pg (25-35) Mean Corpuscular Hemoglobin Concent 32 g/dL (31-37) Red Cell Distribution Width 17.6 % (11.5-14.5) Platelet Count 249 x10^3/uL (140-400) Neutrophils (%) (Auto) 96 % (31-73) Lymphocytes (%) (Auto) 2 % (24-48) Monocytes (%) (Auto) 2 % (0-9) Eosinophils (%) (Auto) 0 % (0-3) Basophils (%) (Auto) 0 % (0-3) Neutrophils # (Auto) 47.9 x10^3/uL (1.8-7.7) Lymphocytes # (Auto) 1.0 x10^3/uL (1.0-4.8) Monocytes # (Auto) 0.8 x10^3/uL (0.0-1.1) Eosinophils # (Auto) 0.0 x10^3/uL (0.0-0.7) Basophils # (Auto) 0.1 x10^3/uL (0.0-0.2) Sodium Level 140 mmol/L (136-145) Potassium Level 3.5 mmol/L (3.5-5.1) Chloride Level 108 mmol/L (98-107) Carbon Dioxide Level 16 mmol/L (21-32) Anion Gap 16 (6-14) Blood Urea Nitrogen 28 mg/dL (8-26) Creatinine 1.3 mg/dL (0.7-1.3) Estimated GFR (Cockcroft-Gault) 53.5 BUN/Creatinine Ratio 22 (6-20) Glucose Level 215 mg/dL (70-99) Lactic Acid Level 4.0 mmol/L (0.4-2.0) Calcium Level 7.5 mg/dL (8.5-10.1) Magnesium Level 1.8 mg/dL (1.8-2.4) Total Bilirubin 1.0 mg/dL (0.2-1.0) Aspartate Amino Transf (AST/SGOT) 32 U/L (15-37) Alanine Aminotransferase (ALT/SGPT) 20 U/L (16-63) Alkaline Phosphatase 159 U/L (46-116) Troponin I Quantitative 0.043 ng/mL (0.000-0.055) Total Protein 4.5 g/dL (6.4-8.2) Albumin 1.1 g/dL (3.4-5.0) Albumin/Globulin Ratio 0.3 (1.0-1.7) O2 Saturation 99 % (92-99) Arterial Blood pH 7.23 (7.35-7.45) [facility] (35-46) Arterial Blood pO2 at Patient Temp 253 mmHg (65-108) Arterial Blood HCO3 12 mmol/L (21-28) Arterial Blood Base Excess -14 mmol/L (-3-3) FiO2 80 SARS-CoV-2 Antigen (Rapid) Negative (NEGATIVE) Glucose (Fingerstick) 233 mg/dL (70-99) Assessment/Plan Assessment/Plan IMP CHUY-ATN CORRECTED AG IS HIGH - AG MET ACIDOSIS WITH INADEQUATE RESP COMPENSATION 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
[2019-10-04] MEDS ORDERED: AMIODARONE 150 MG in IV DEXTROSE 5% 100ML 100 ML IV ONE (14:30)
--- NOTE | 2019-10-04 14:44 | NUR ---
SS following for discharge planning. SS reviewed pt chart and discussed with pt RN. Pt is from home and is currently on the vent. COVID19 negative. Pt on IV Zyvox and IV Micafungin. Pt on Amio drip and Levophed. SS will continue to follow for discharge planning. Addendum: 10/04/19 at 1535 by AMBER IBARRA CORRECTION TO PREVIOUS NOTE: SS received notification that pt is from [facility], ; fax [phone].
[2019-10-04] MEDS: AMIODARONE 450 MG in IV DEXTROSE 5% 250 ML IV PRN (15:26)
--- NOTE | 2019-10-04 16:39 | NUR ---
Wound Care Wound Type/Assessment: wound care consult for buttock abscess. Pt has open abscess to right buttock that tunnels toward anus and scrotum. Wound is slough covered with copious drainage and foul odor. [place] drain was wrapped through stringy black slough and fell out with cleaning along with clump of slough. Pt bed was saturated with stool and wound drainage, complete bed change performed. Treatment Recommendations/Plan: Due to location of wound and unexplored tunnels a wound vac is not an option. Recommend Dakin's soaked gauze roll daily with chux changes PRN for drainage, OK'd via telephone per Dr Landaverde. Education provided: Pt unresponsive on vent. Educated Joseline OHARA on wound care plan. Offloading surface/device: Pt on ICU Bed at this time Recommended Referrals/Tests: Surgical debridement when stable Discharge Recommendations for dressings: Continue as above noted. Pt coded after dressing change after being returned to his back. Asystole noted on monitor then PEA. Code Blue called with Joseline OHARA at bedside. Wound care will follow up if pt recovers.
--- NOTE | 2019-10-04 16:39 | NUR ---
At approximately 1615- pt HR noted to be suddenly in the 30s on the monitor, finally going PEA on monitor. Code blue called by this RN, see code blue sheet. ROSC achieved- pt HR now 120s, on levophed,vasopressin gtt- 100%fio2 on vent. Family at bedside, code status discussed- decision made by and daughter to make pt DO NOT RESUSCITATE. Confirmed by LEV Saavedra also at bedside. Dr fernando mauricio, waiting on return call. Family at bedside, will monitor. called to perform last rites at family's request.
[2019-10-04] MEDS: SODIUM BICARBONATE IV SCH (17:00)
[2019-10-04] MEDS: NACL IV SCH (17:00)
[2019-10-04] MEDS: DEXTROSE IV SCH (17:00)
--- NOTE | 2019-10-04 17:00 | NUR ---
Dr Gonzales notified of pt status and code blue event- no new orders at this time. Pt DNR.
--- NOTE | 2019-10-04 19:48 | NUR ---
bp is mean only at this time.
[2019-10-05] VITALS (10 sets, daily range): BP systolic 66–135; BP diastolic 38–82
[2019-10-05] MEDS: NACL IV SCH (03:04)
[2019-10-05] MEDS: DEXTROSE IV SCH (03:04)
[2019-10-05] MEDS: NOREPINEPHRINE VIAL 32 MG in IV D5W 250ML IV PRN ×2 (03:04→07:52)
[2019-10-05] MEDS: SODIUM BICARBONATE IV SCH (03:04)
[2019-10-05] MEDS: AMIODARONE 450 MG in IV DEXTROSE 5% 250 ML IV PRN (03:08)
[2019-10-05] MEDS: INSULIN LISPRO 300 UNITS/3 ML VIAL. SQ SCH (05:34)
[2019-10-05] MEDS: HYDROCORTISONE SOD SUCC/PF 100 MG/2 ML VIAL. IVP SCH (05:42)
[2019-10-05] MEDS: PIPERACILLIN/TAZOBACTAM 3.375 GM in IV NORMAL SALINE 50ML 50 ML IV SCH (05:42)
[2019-10-05 05:56] LABS: BASO # 0.1 x10^3/uL (0.0-0.2); BASO % 0 % (0-3); EOS % 0 % (0-3); HEMATOCRIT 33.7 % (39.0-53.0); HEMOGLOBIN 10.5 g/dL (13.0-17.5); LYMPH # 1.3 x10^3/uL (1.0-4.8); LYMPH % 2 % (24-48); MEAN CORPUSCULAR HEMOGLOBIN 31 pg (25-35); MEAN CORPUSCULAR HGB CONC 31 g/dL (31-37); MEAN CORPUSCULAR VOLUME 98 fL (79-100); MONO # 1.5 x10^3/uL (0.0-1.1); MONO % 3 % (0-9); NEUT # 52.8 x10^3/uL (1.8-7.7); NEUT % 95 % (31-73); PLATELET COUNT 58 x10^3/uL (140-400); RED BLOOD COUNT 3.44 x10^6/uL (4.30-5.70); RED CELL DISTRIBUTION WIDTH 18.5 % (11.5-14.5)
[2019-10-05 06:23] LABS: ALBUMIN 0.7 g/dL (3.4-5.0); ALBUMIN/GLOBULIN RATIO 0.2 (1.0-1.7); CALCIUM 6.7 mg/dL (8.5-10.1); CREATININE 2.6 mg/dL (0.7-1.3); GFR 24.1; PHOSPHORUS 5.9 mg/dL (2.6-4.7); POTASSIUM 4.1 mmol/L (3.5-5.1); TOTAL BILIRUBIN 1.3 mg/dL (0.2-1.0); TOTAL PROTEIN 3.7 g/dL (6.4-8.2)
[2019-10-05 06:35] LABS: WHITE BLOOD COUNT 55.8 x10^3/uL (4.0-11.0)
[2019-10-05] MEDS: VASOPRESSIN 20 UNIT in IV DEXTROSE 5% 100ML 100 ML IV PRN (06:44)
[2019-10-05] MEDS: MICAFUNGIN 100 MG in IV DEXTROSE 5% 100ML 100 ML IV SCH (07:35)
--- NOTE | 2019-10-05 07:40 | PDOC ---
Infectious Disease Note Subjective Subjective pt is sedated on vent ROS ROS unable to do Vital Sign Vital Signs Vital Signs Date Time Temp Pulse Resp B/P (MAP) Pulse Ox O2 Delivery O2 Flow Rate FiO2 10/05/19 06:00 120 31 133/76 (95) 92 Ventilator 10/05/19 04:00 99.2 99.2 Physical Exam PHYSICAL EXAM GENERAL: Sedated, orally intubated gentleman, not in any distress. VITAL SIGNS: AF, on vasopressors HEENT: Both pupils are round and reacting. No conjunctival lesion, no lesion in the mouth. NECK: Supple, no JVP, no lymphadenopathy. LUNGS: Decreased breath sounds bilaterally. HEART: S1, S2 regular. No gallop or murmur, tachycardic. ABDOMEN: Soft, nontender, no organomegaly. EXTREMITIES: Right lower extremity does have subcutaneous emphysema. There is no erythema. No cyanosis The right lower extremity is slightly warm than compared to the left lower extremity. NEUROLOGIC: The patient is now sedated, orally intubated. 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 Labs Lab Laboratory Tests Test 10/04/19 08:15 10/04/19 09:16 10/04/19 11:57 10/05/19 05:30 O2 Saturation 99 % (92-99) Arterial Blood pH 7.23 (7.35-7.45) Arterial Blood pCO2 at Patient Temp 29 mmHg (35-46) Arterial Blood pO2 at Patient Temp 253 mmHg (65-108) Arterial Blood HCO3 12 mmol/L (21-28) Arterial Blood Base Excess -14 mmol/L (-3-3) FiO2 80 SARS-CoV-2 Antigen (Rapid) Negative (NEGATIVE) Glucose (Fingerstick) 233 mg/dL (70-99) 278 mg/dL (70-99) White Blood Count 55.8 x10^3/uL (4.0-11.0) Red Blood Count 3.44 x10^6/uL (4.30-5.70) Hemoglobin 10.5 g/dL (13.0-17.5) Hematocrit 33.7 % (39.0-53.0) Mean Corpuscular Volume 98 fL (79-100) Mean Corpuscular Hemoglobin 31 pg (25-35) Mean Corpuscular Hemoglobin Concent 31 g/dL (31-37) Red Cell Distribution Width 18.5 % (11.5-14.5) Platelet Count 58 x10^3/uL (140-400) Neutrophils (%) (Auto) 95 % (31-73) Lymphocytes (%) (Auto) 2 % (24-48) Monocytes (%) (Auto) 3 % (0-9) Eosinophils (%) (Auto) 0 % (0-3) Basophils (%) (Auto) 0 % (0-3) Neutrophils # (Auto) 52.8 x10^3/uL (1.8-7.7) Lymphocytes # (Auto) 1.3 x10^3/uL (1.0-4.8) Monocytes # (Auto) 1.5 x10^3/uL (0.0-1.1) Eosinophils # (Auto) 0.0 x10^3/uL (0.0-0.7) Basophils # (Auto) 0.1 x10^3/uL (0.0-0.2) Sodium Level 136 mmol/L (136-145) Potassium Level 4.1 mmol/L (3.5-5.1) Chloride Level 104 mmol/L (98-107) Carbon Dioxide Level 13 mmol/L (21-32) Anion Gap 19 (6-14) Blood Urea Nitrogen 35 mg/dL (8-26) Creatinine 2.6 mg/dL (0.7-1.3) Estimated GFR (Cockcroft-Gault) 24.1 BUN/Creatinine Ratio 13 (6-20) Glucose Level 292 mg/dL (70-99) Calcium Level 6.7 mg/dL (8.5-10.1) Phosphorus Level 5.9 mg/dL (2.6-4.7) Magnesium Level 2.0 mg/dL (1.8-2.4) Total Bilirubin 1.3 mg/dL (0.2-1.0) Aspartate Amino Transf (AST/SGOT) 275 U/L (15-37) Alanine Aminotransferase (ALT/SGPT) 77 U/L (16-63) Alkaline Phosphatase 153 U/L (46-116) Total Protein 3.7 g/dL (6.4-8.2) Albumin 0.7 g/dL (3.4-5.0) Albumin/Globulin Ratio 0.2 (1.0-1.7) Micro BC 1/4 G + cocci Objective Assessment IMPRESSION: 1. Gastrointestinal bleed. 2. Hypotension. 3. Lactic acidosis. 4. 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 5. Right lower extremity subcutaneous air. 6. Pneumoperitoneum. suspected perforated viscus. 7. Crohn's disease. 8. Hypertension. 9. Hypothyroidism. 10. Abdominal aortic aneurysm. 11 BC + ID pending Plan Plan of Care cont zyvox, zosyn and jenna cont supportive care overall prognosis poor LILLY MOREL MD Oct 05, 2019 07:40
[2019-10-05 08:24] LABS: BASE EXCESS ABG -19 mmol/L (-3-3); HCO3 ABG 8 mmol/L (21-28); PCO2 ABG 24 mmHg (35-46); PO2 ABG 98 mmHg (65-108); SAT O2 ABG 96 % (92-99)
[2019-10-05 08:27] LABS: CORRECTED PCO2 ABG 25 mmHg; CORRECTED PH ABG 7.13; CORRECTED PO2 ABG 104 mmHg
[2019-10-05 08:37] LABS: FIO2 ABG 40
[2019-10-05] MEDS ORDERED: SODIUM BICARB ADULT 8.4% 50 MEQ/50 ML DISP.SYRIN. IV ONE (08:45)
--- NOTE | 2019-10-05 08:59 | RAD ---
EXAM: Chest, single view. HISTORY: Respiratory failure. COMPARISON: 10/04/2019 FINDINGS: A frontal view of the chest is obtained. There has been slight interval decrease in diffuse lower lobe predominant interstitial infiltrate and small pleural effusions. There is a stable cardiac silhouette. There is an endotracheal tube within the mid trachea. There is a nasogastric tube within the stomach. There is a right internal jugular catheter with the tip in the superior cavoatrial junction. There is no pneumothorax. IMPRESSION: Slight interval decrease in diffuse lower lobe predominant interstitial infiltrate and small pleural effusions. Electronically signed by: Zoë Stewart MD (10/05/2019 8:55 AM) [facility]
[2019-10-05] MEDS ORDERED: SODIUM HYPOCHLORITE 0.125% 473 ML BOTTLE. TP SCH (09:00)
--- NOTE | 2019-10-05 09:06 | NUR ---
[facility] called and notified of comfort measures. Okay to withdrawal care. Call with Cardiac .
--- NOTE | 2019-10-05 09:08 | PDOC ---
PULMONARY PROGRESS NOTES DATE: 10/05/19 TIME: 09:04 Subjective Pt. S/P cardiac arrest PEA in nature, Family wishing to proceed with palliative extubation this am Vitals Vital Signs Date Time Temp Pulse Resp B/P (MAP) Pulse Ox O2 Delivery O2 Flow Rate FiO2 10/05/19 08:04 99 Ventilator 10/05/19 06:00 120 31 133/76 (95) 10/05/19 04:00 99.2 99.2 Comments intubated/sedated Labs Laboratory Tests Test 10/03/19 19:54 10/03/19 20:07 10/03/19 20:38 10/03/19 22:35 White Blood Count 30.6 x10^3/uL (4.0-11.0) Red Blood Count 2.42 x10^6/uL (4.30-5.70) Hemoglobin 7.3 g/dL (13.0-17.5) Hematocrit 23.3 % (39.0-53.0) Mean Corpuscular Volume 96 fL (79-100) Mean Corpuscular Hemoglobin 30 pg (25-35) Mean Corpuscular Hemoglobin Concent 31 g/dL (31-37) Red Cell Distribution Width 19.4 % (11.5-14.5) Platelet Count 244 x10^3/uL (140-400) Neutrophils (%) (Auto) 94 % (31-73) Lymphocytes (%) (Auto) 4 % (24-48) Monocytes (%) (Auto) 2 % (0-9) Eosinophils (%) (Auto) 0 % (0-3) Basophils (%) (Auto) 0 % (0-3) Neutrophils # (Auto) 28.6 x10^3/uL (1.8-7.7) Lymphocytes # (Auto) 1.3 x10^3/uL (1.0-4.8) Monocytes # (Auto) 0.7 x10^3/uL (0.0-1.1) Eosinophils # (Auto) 0.0 x10^3/uL (0.0-0.7) Basophils # (Auto) 0.0 x10^3/uL (0.0-0.2) Segmented Neutrophils % 73 % (35-66) Band Neutrophils % 17 % (0-9) Lymphocytes % 3 % (24-48) Monocytes % 2 % (0-10) Metamyelocytes % 3 % (0-0) Myelocytes % 2 % (0-0) Nucleated Red Blood Cells 8 Toxic Granulation Slight Platelet Estimate Adequate (ADEQUATE) Polychromasia Mod Anisocytosis Slight Prothrombin Time 21.1 SEC (11.7-14.0) Prothromb Time International Ratio 1.9 (0.8-1.1) Activated Partial Thromboplast Time 41 SEC (24-38) Fibrinogen 270 mg/dL (200-440) Sodium Level 139 mmol/L (136-145) Potassium Level 3.4 mmol/L (3.5-5.1) Chloride Level 107 mmol/L (98-107) Carbon Dioxide Level 20 mmol/L (21-32) Anion Gap 12 (6-14) Blood Urea Nitrogen 29 mg/dL (8-26) Creatinine 1.4 mg/dL (0.7-1.3) Estimated GFR (Cockcroft-Gault) 49.1 BUN/Creatinine Ratio 21 (6-20) Glucose Level 192 mg/dL (70-99) Lactic Acid Level 7.4 mmol/L (0.4-2.0) Calcium Level 8.1 mg/dL (8.5-10.1) Total Bilirubin 0.7 mg/dL (0.2-1.0) Aspartate Amino Transf (AST/SGOT) 16 U/L (15-37) Alanine Aminotransferase (ALT/SGPT) 18 U/L (16-63) Alkaline Phosphatase 157 U/L (46-116) Creatine Kinase 24 U/L (39-308) Creatine Kinase MB (Mass) 1.7 ng/mL (0.0-3.6) Creatine Kinase MB Relative Index % (0-4) Troponin I Quantitative 0.024 ng/mL (0.000-0.055) OD-Arf-A-Type Natriuretic Peptide 3865 pg/mL (0-449) Total Protein 4.6 g/dL (6.4-8.2) Albumin 1.2 g/dL (3.4-5.0) Albumin/Globulin Ratio 0.4 (1.0-1.7) Bedside Troponin I 0.04 ng/ml (<0.08) Bedside Venous pH 7.10 (7.32-7.42) Bedside Venous pCO2 40 mmHg (41-51) Bedside Venous pO2 76 mmHg (20-40) Venous Blood HCO3 12 mmol/L (24-28) POC Venous O2 Saturation (Salvatore) 89 % Bedside FiO2 21 Ionized Calcium 1.15 mmol/L (1.13-1.32) O2 Saturation 98 % (92-99) Arterial Blood pH 7.28 (7.35-7.45) Arterial Blood pH (Temp corrected) 7.29 Arterial Blood pCO2 at Patient Temp 26 mmHg (35-46) Arterial Blood pCO2 (Temp correct) 25 mmHg Arterial Blood pO2 at Patient Temp 159 mmHg (65-108) Arterial Blood pO2 (Temp corrected) 155 mmHg Arterial Blood HCO3 12 mmol/L (21-28) Arterial Blood Base Excess -13 mmol/L (-3-3) FiO2 100 Test 10/03/19 22:39 10/04/19 01:20 10/04/19 08:15 10/04/19 09:16 Coronavirus (PCR) Not detected (Not Detected) White Blood Count 49.8 x10^3/uL (4.0-11.0) Red Blood Count 3.61 x10^6/uL (4.30-5.70) Hemoglobin 11.0 g/dL (13.0-17.5) Hematocrit 34.4 % (39.0-53.0) Mean Corpuscular Volume 95 fL (79-100) Mean Corpuscular Hemoglobin 30 pg (25-35) Mean Corpuscular Hemoglobin Concent 32 g/dL (31-37) Red Cell Distribution Width 17.6 % (11.5-14.5) Platelet Count 249 x10^3/uL (140-400) Neutrophils (%) (Auto) 96 % (31-73) Lymphocytes (%) (Auto) 2 % (24-48) Monocytes (%) (Auto) 2 % (0-9) Eosinophils (%) (Auto) 0 % (0-3) Basophils (%) (Auto) 0 % (0-3) Neutrophils # (Auto) 47.9 x10^3/uL (1.8-7.7) Lymphocytes # (Auto) 1.0 x10^3/uL (1.0-4.8) Monocytes # (Auto) 0.8 x10^3/uL (0.0-1.1) Eosinophils # (Auto) 0.0 x10^3/uL (0.0-0.7) Basophils # (Auto) 0.1 x10^3/uL (0.0-0.2) Sodium Level 140 mmol/L (136-145) Potassium Level 3.5 mmol/L (3.5-5.1) Chloride Level 108 mmol/L (98-107) Carbon Dioxide Level 16 mmol/L (21-32) Anion Gap 16 (6-14) Blood Urea Nitrogen 28 mg/dL (8-26) Creatinine 1.3 mg/dL (0.7-1.3) Estimated GFR (Cockcroft-Gault) 53.5 BUN/Creatinine Ratio 22 (6-20) Glucose Level 215 mg/dL (70-99) Lactic Acid Level 4.0 mmol/L (0.4-2.0) Calcium Level 7.5 mg/dL (8.5-10.1) Magnesium Level 1.8 mg/dL (1.8-2.4) Total Bilirubin 1.0 mg/dL (0.2-1.0) Aspartate Amino Transf (AST/SGOT) 32 U/L (15-37) Alanine Aminotransferase (ALT/SGPT) 20 U/L (16-63) Alkaline Phosphatase 159 U/L (46-116) Troponin I Quantitative 0.043 ng/mL (0.000-0.055) Total Protein 4.5 g/dL (6.4-8.2) Albumin 1.1 g/dL (3.4-5.0) Albumin/Globulin Ratio 0.3 (1.0-1.7) O2 Saturation 99 % (92-99) Arterial Blood pH 7.23 (7.35-7.45) Arterial Blood pCO2 at Patient Temp 29 mmHg (35-46) Arterial Blood pO2 at Patient Temp 253 mmHg (65-108) Arterial Blood HCO3 12 mmol/L (21-28) Arterial Blood Base Excess -14 mmol/L (-3-3) FiO2 80 SARS-CoV-2 Antigen (Rapid) Negative (NEGATIVE) Test 10/04/19 11:57 10/05/19 05:30 10/05/19 08:00 Glucose (Fingerstick) 233 mg/dL (70-99) 278 mg/dL (70-99) White Blood Count 55.8 x10^3/uL (4.0-11.0) Red Blood Count 3.44 x10^6/uL (4.30-5.70) Hemoglobin 10.5 g/dL (13.0-17.5) Hematocrit 33.7 % (39.0-53.0) Mean Corpuscular Volume 98 fL (79-100) Mean Corpuscular Hemoglobin 31 pg (25-35) Mean Corpuscular Hemoglobin Concent 31 g/dL (31-37) Red Cell Distribution Width 18.5 % (11.5-14.5) Platelet Count 58 x10^3/uL (140-400) Neutrophils (%) (Auto) 95 % (31-73) Lymphocytes (%) (Auto) 2 % (24-48) Monocytes (%) (Auto) 3 % (0-9) Eosinophils (%) (Auto) 0 % (0-3) Basophils (%) (Auto) 0 % (0-3) Neutrophils # (Auto) 52.8 x10^3/uL (1.8-7.7) Lymphocytes # (Auto) 1.3 x10^3/uL (1.0-4.8) Monocytes # (Auto) 1.5 x10^3/uL (0.0-1.1) Eosinophils # (Auto) 0.0 x10^3/uL (0.0-0.7) Basophils # (Auto) 0.1 x10^3/uL (0.0-0.2) Sodium Level 136 mmol/L (136-145) Potassium Level 4.1 mmol/L (3.5-5.1) Chloride Level 104 mmol/L (98-107) Carbon Dioxide Level 13 mmol/L (21-32) Anion Gap 19 (6-14) Blood Urea Nitrogen 35 mg/dL (8-26) Creatinine 2.6 mg/dL (0.7-1.3) Estimated GFR (Cockcroft-Gault) 24.1 BUN/Creatinine Ratio 13 (6-20) Glucose Level 292 mg/dL (70-99) Calcium Level 6.7 mg/dL (8.5-10.1) Phosphorus Level 5.9 mg/dL (2.6-4.7) Magnesium Level 2.0 mg/dL (1.8-2.4) Total Bilirubin 1.3 mg/dL (0.2-1.0) Aspartate Amino Transf (AST/SGOT) 275 U/L (15-37) Alanine Aminotransferase (ALT/SGPT) 77 U/L (16-63) Alkaline Phosphatase 153 U/L (46-116) Total Protein 3.7 g/dL (6.4-8.2) Albumin 0.7 g/dL (3.4-5.0) Albumin/Globulin Ratio 0.2 (1.0-1.7) O2 Saturation 96 % (92-99) Arterial Blood pH 7.14 (7.35-7.45) Arterial Blood pH (Temp corrected) 7.13 Arterial Blood pCO2 at Patient Temp 24 mmHg (35-46) Arterial Blood pCO2 (Temp correct) 25 mmHg Arterial Blood pO2 at Patient Temp 98 mmHg (65-108) Arterial Blood pO2 (Temp corrected) 104 mmHg Arterial Blood HCO3 8 mmol/L (21-28) Arterial Blood Base Excess -19 mmol/L (-3-3) FiO2 40 Laboratory Tests Test 10/04/19 09:16 10/04/19 11:57 10/05/19 05:30 10/05/19 08:00 SARS-CoV-2 Antigen (Rapid) Negative (NEGATIVE) Glucose (Fingerstick) 233 mg/dL (70-99) 278 mg/dL (70-99) White Blood Count 55.8 x10^3/uL (4.0-11.0) Red Blood Count 3.44 x10^6/uL (4.30-5.70) Hemoglobin 10.5 g/dL (13.0-17.5) Hematocrit 33.7 % (39.0-53.0) Mean Corpuscular Volume 98 fL (79-100) Mean Corpuscular Hemoglobin 31 pg (25-35) Mean Corpuscular Hemoglobin Concent 31 g/dL (31-37) Red Cell Distribution Width 18.5 % (11.5-14.5) Platelet Count 58 x10^3/uL (140-400) Neutrophils (%) (Auto) 95 % (31-73) Lymphocytes (%) (Auto) 2 % (24-48) Monocytes (%) (Auto) 3 % (0-9) Eosinophils (%) (Auto) 0 % (0-3) Basophils (%) (Auto) 0 % (0-3) Neutrophils # (Auto) 52.8 x10^3/uL (1.8-7.7) Lymphocytes # (Auto) 1.3 x10^3/uL (1.0-4.8) Monocytes # (Auto) 1.5 x10^3/uL (0.0-1.1) Eosinophils # (Auto) 0.0 x10^3/uL (0.0-0.7) Basophils # (Auto) 0.1 x10^3/uL (0.0-0.2) Sodium Level 136 mmol/L (136-145) Potassium Level 4.1 mmol/L (3.5-5.1) Chloride Level 104 mmol/L (98-107) Carbon Dioxide Level 13 mmol/L (21-32) Anion Gap 19 (6-14) Blood Urea Nitrogen 35 mg/dL (8-26) Creatinine 2.6 mg/dL (0.7-1.3) Estimated GFR (Cockcroft-Gault) 24.1 BUN/Creatinine Ratio 13 (6-20) Glucose Level 292 mg/dL (70-99) Calcium Level 6.7 mg/dL (8.5-10.1) Phosphorus Level 5.9 mg/dL (2.6-4.7) Magnesium Level 2.0 mg/dL (1.8-2.4) Total Bilirubin 1.3 mg/dL (0.2-1.0) Aspartate Amino Transf (AST/SGOT) 275 U/L (15-37) Alanine Aminotransferase (ALT/SGPT) 77 U/L (16-63) Alkaline Phosphatase 153 U/L (46-116) Total Protein 3.7 g/dL (6.4-8.2) Albumin 0.7 g/dL (3.4-5.0) Albumin/Globulin Ratio 0.2 (1.0-1.7) O2 Saturation 96 % (92-99) Arterial Blood pH 7.14 (7.35-7.45) Arterial Blood pH (Temp corrected) 7.13 Arterial Blood pCO2 at Patient Temp 24 mmHg (35-46) Arterial Blood pCO2 (Temp correct) 25 mmHg Arterial Blood pO2 at Patient Temp 98 mmHg (65-108) Arterial Blood pO2 (Temp corrected) 104 mmHg Arterial Blood HCO3 8 mmol/L (21-28) Arterial Blood Base Excess -19 mmol/L (-3-3) FiO2 40 Medications Active Scripts Medications Dose Route/Sig Max Daily Dose Days Date Category Dose Instructions Seroquel (Quetiapine Fumarate) 25 Mg Tablet 1 Tab PO QHS 10/04/19 Reported Lasix (Furosemide) 40 Mg Tablet 1 Tab PO DAILY 30 10/04/19 Reported Sodium Bicarbonate 650 Mg Tablet 2 Tab PO BID 10/04/19 Reported Seroquel (Quetiapine Fumarate) 25 Mg Tablet 0.5 Tab PO PRN Q6HRS PRN 10/04/19 Reported Prednisone (Prednisone) 10 Mg Tablet 2 Tab PO BID 10/04/19 Reported Klor-Con M20 (Potassium Chloride) 20 Meq Tab.er.prt 1 Tab PO DAILY 30 10/04/19 Reported Zosyn 3.375 Gm Pre Mix-Bag (Kgnnvqxgejsh-Vylr-Gbjkwulg,Iso) 3.375 Gm/50 Ml Froz.piggy 3.375 Gm IV Q6HRS 10/04/19 Reported Protonix (Pantoprazole Sodium) 40 Mg Tablet.dr 40 Mg PO DAILYAC 10/04/19 Reported [Oxychlorosene Sodium] 2 Gm TOP DAILY 10/04/19 Reported Ondansetron HCl 4 mg/2 ml Syr (Ondansetron HCl/Pf) 4 Mg/2 Ml Syringe 4 Mg IJ PRN Q6HRS PRN 10/04/19 Reported Morphine-Ns 2 Mg/Ml Syringe (Morphine Sulfate In 0.9 % Nacl) 2 Mg/1 Ml Disp.syrin 4 Mg IV PRN Q4HRS PRN 10/04/19 Reported Lialda (Mesalamine) 1.2 Gm Tablet. 4.8 Gm PO DAILY 10/04/19 Reported Melatonin 3 Mg Tab.rapdis 1 Tab PO QHS PRN 30 10/04/19 Reported Loperamide (Loperamide Hcl) 2 Mg Capsule 2 Mg PO PRN Q4HRS PRN 10/04/19 Reported Levothyroxine Sodium 125 Mcg Tablet 1 Tab PO DAILY 10/04/19 Reported [S-Didmti-RZC 6-2-600] 1 Tab PO DAILY 10/04/19 Reported Flonase Allergy Relief (Fluticasone Propionate) 9.9 Ml [place].susp 2 Sprays NS BID 10/04/19 Reported Lovenox (Enoxaparin Sodium) 40 Mg/0.4 Ml Disp.syrin 40 Mg SQ DAILY 10/04/19 Reported Lomotil Tablet (Diphenoxylate Hcl/Atropine) 1 Each Tablet 1 Tab PO PRN BID PRN 10/04/19 Reported Voltaren (Diclofenac Sodium) 100 Gm Gel..gram. 1 Gm TP QID 30 10/04/19 Reported apply to affected area(s) [Anidulafungin] 100 Mg IV Q24HR 10/04/19 Reported Acetaminophen 325 Mg Tablet 325 Mg PO PRN Q4HRS PRN 10/04/19 Reported Impression . IMPRESSION: 1. Acute respiratory failure secondary to septic shock and metabolic encephalopathy. 2. The patient with perirectal/gluteal abscess with possible necrotizing fasciitis status post debridement. Now has an open gaping wound and suspicion for necrosis of the tissue. CT pelvis is pending. General Surgery has been consulted and following. 3. History of Crohn's disease. 4. Abnormal chest x-ray with pleural effusion, likely related to hypoalbuminemia. 5. Severe protein-calorie malnutrition. 6. Marked leukocytosis secondary to septic shock. 7. Lactic acidosis secondary to septic shock. 8. S/P cardiac arrest Plan . RECOMMENDATIONS: Proceed with palliative extubation, and comfort measures only Discussed with RN and RT. Pt not likely to survive MIKE GOODEN MD Oct 05, 2019 09:08
[2019-10-05] MEDS ORDERED: MORPHINE SULFATE 4 MG/ML VIAL. IV PRN (09:15)
[2019-10-05] MEDS ORDERED: MORPHINE SULFATE 10 MG/ML VIAL. IV ONE ×2 (09:15→09:30)
--- NOTE | 2019-10-05 09:20 | NUR ---
Family at bedside updated on patient condition. Family requesting to make patient comfortable and to take pt off ventilator. Rneate CHIN notified and Dr. Gonzales notified of wishes. Comfort orders were received and pt was extubated at 0915. Pt given PRN medications.
[2019-10-05] MEDS ORDERED: SCOPOLAMINE 1.5MG PATCH. TD SCH (09:30)
--- NOTE | 2019-10-05 09:53 | PDOC ---
Date of Service: DATE: 10/05/19 TIME: 09:50 Objective: Objective: D/w nurse earlier - s/p code, no reflexes, on pressors. Now plans for palliative extubation. Vital Signs: Vital Signs Date Time Temp Pulse Resp B/P (MAP) Pulse Ox O2 Delivery O2 Flow Rate FiO2 10/05/19 09:45 87 66/38 (47) 10/05/19 09:26 Room Air 10/05/19 09:00 22 10/05/19 08:04 99 10/05/19 08:00 100.2 100.2 Labs: Laboratory Tests Test 10/04/19 11:57 10/05/19 05:30 10/05/19 08:00 Glucose (Fingerstick) 233 mg/dL 278 mg/dL White Blood Count 55.8 x10^3/uL Red Blood Count 3.44 x10^6/uL Hemoglobin 10.5 g/dL Hematocrit 33.7 % Mean Corpuscular Volume 98 fL Mean Corpuscular Hemoglobin 31 pg Mean Corpuscular Hemoglobin Concent 31 g/dL Red Cell Distribution Width 18.5 % Platelet Count 58 x10^3/uL Neutrophils (%) (Auto) 95 % Lymphocytes (%) (Auto) 2 % Monocytes (%) (Auto) 3 % Eosinophils (%) (Auto) 0 % Basophils (%) (Auto) 0 % Neutrophils # (Auto) 52.8 x10^3/uL Lymphocytes # (Auto) 1.3 x10^3/uL Monocytes # (Auto) 1.5 x10^3/uL Eosinophils # (Auto) 0.0 x10^3/uL Basophils # (Auto) 0.1 x10^3/uL Sodium Level 136 mmol/L Potassium Level 4.1 mmol/L Chloride Level 104 mmol/L Carbon Dioxide Level 13 mmol/L Anion Gap 19 Blood Urea Nitrogen 35 mg/dL Creatinine 2.6 mg/dL Estimated GFR (Cockcroft-Gault) 24.1 BUN/Creatinine Ratio 13 Glucose Level 292 mg/dL Calcium Level 6.7 mg/dL Phosphorus Level 5.9 mg/dL Magnesium Level 2.0 mg/dL Total Bilirubin 1.3 mg/dL Aspartate Amino Transf (AST/SGOT) 275 U/L Alanine Aminotransferase (ALT/SGPT) 77 U/L Alkaline Phosphatase 153 U/L Total Protein 3.7 g/dL Albumin 0.7 g/dL Albumin/Globulin Ratio 0.2 O2 Saturation 96 % Arterial Blood pH 7.14 Arterial Blood pH (Temp corrected) 7.13 Arterial Blood pCO2 at Patient Temp 24 mmHg Arterial Blood pCO2 (Temp correct) 25 mmHg Arterial Blood pO2 at Patient Temp 98 mmHg Arterial Blood pO2 (Temp corrected) 104 mmHg Arterial Blood HCO3 8 mmol/L Arterial Blood Base Excess -19 mmol/L FiO2 40 PE: GEN: chronically ill LUNGS: vent NEURO/PSYCH: unresponsive A/P: S/p code Pneumoperitoneum -- Plans to withdraw care as above. Justicifation of Admission Dx: Justifications for Admission: Justification of Admission Dx: Yes Respiratory Failure: Mechanical Ventilation Comminuty Aquired Pneumonia: Bactermia Sepsis: End-Organ Dysfunction ROBER AMADOR Oct 05, 2019 09:53
--- NOTE | 2019-10-05 10:24 | NUR ---
Pt was pronounced @ 0956 via 2 RN auscultation. Family at bedside. Pt does not have any belongings with him at this time. Family informed to call Nursing Clinical Research Tech with home and given a card with hospital number. [facility] called with [facility].
--- NOTE | 2019-10-05 12:20 | PDOC ---
Provider Note Provider Note discharge summary dictated #[id number] Justifications for Admission Other Justification DARNELL GUADALUPE MD Oct 05, 2019 12:20
--- NOTE | 2019-10-05 14:01 | DS ---
DATE OF DISCHARGE: 10/05/2019 DATE OF EXPIRATION: 10/05/2019 CONSULTANTS: Include Dr. Ley, Dr. Moreno, Dr. Momo De Leon, Dr. Foy, Dr. Landaverde and Dr. Theodore. FINAL DIAGNOSES: 1. Perforated viscus. 2. Sepsis with severe shock. 3. Anemia of chronic disease. 4. Coffee-ground emesis x 1 at the previous facility. 5. Acute hypoxic respiratory failure on the ventilator. 5. Metabolic acidosis secondary to sepsis with shock. 6. Severe protein-calorie malnutrition. 7. History of necrotizing fasciitis and has a large gluteal wound. 8. Leukocytosis. 9. Hypomagnesemia. 10. Acute kidney injury. 11. Severe protein-calorie malnutrition. HOSPITAL COURSE: The patient is a 79-year-old white male diagnosed with Crohn's disease on 06/2019 admitted to [facility] on 09/17/2019 with a perirectal abscess and incision and drainage. He was noted to have necrotizing fasciitis and Shalonda gangrene, treated with debridement and IV antibiotics. He has a history of abdominal aortic aneurysm. He had a metabolic encephalopathy at previous hospital. He has hypertension, hypothyroidism, was admitted to [facility] on 09/25/2019 for IV antibiotics and wound care. He had a large wound in the gluteal area. At one time, he had some stool and pus noted in it. He was not a good candidate for a diverting colostomy. He received wound care and IV antibiotics at [facility]. Then, he had a Rapid Response in the early evening of 10/03/2019 and he was noted to have diffuse abdominal tenderness and some guarding. He also had a change in his vital signs, tachycardia and Rapid Response as mentioned was called. The patient was sent to [facility] Emergency Room where he was subsequently admitted. A KUB revealed pneumoperitoneum. Hemoglobin was 7.3, previously it was 7.5, but he did receive 2 units of packed red blood cells ordered from the Emergency Room. His white count was high at 30.6. He received IV vancomycin and clindamycin as well as IV Zosyn in the Emergency Room. He also was intubated and placed on the ventilator. A CAT scan of the abdomen and pelvis could not be done as he was unstable. He was hypotensive and started on pressors and IV fluids. An orogastric tube was placed. His white count increased to 49.8 the following day. BUN was 28, creatinine 1.3, albumin was low at 1.1. It was felt that he had a perforated viscus with septic shock. The patient was seen by numerous consultants including Dr. Ley for acute kidney injury, Dr. Moreno for sinus tachycardia and apparently he also had some atrial flutter. Dr. Momo De Leon for Infectious Disease, Dr. Foy for Pulmonary, Dr. Landaverde for General Surgery, and Dr. Theodore for GI. An echocardiogram showed preserved left ventricular ejection fraction. He had pulseless electrical cardiac arrest also and was resuscitated yesterday and the family after that wanted him to be a do not resuscitate. This morning's laboratory tests, fortunately he is COVID-19 negative. His BUN is 35. Creatinine increased to 2.6, blood sugar was 278. His magnesium was 1.3, albumin was low at 0.7. SGOT was 275 and SGPT of 77 and his bilirubin was 1.3 with an alkaline phosphatase 153. One out of his 4 bottles blood cultures was positive for gram-positive cocci in pairs and chains. Identification and sensitivities pending. Then this morning the patient's family wanted him to be palliative care and he was extubated and subsequent to that. He was made a do not resuscitate yesterday. While I was in the hospital, he did receive IV Protonix and pressors. He also received IV antibiotics too. He is on an insulin sliding scale and also received antifungal medication. He was also noted to have a very large wound in the gluteal area from his previous necrotizing fasciitis. DARNELL GUADALUPE MD DR: LAURA/josseline JOB#: [id number] / [id number]
== END 2019-10-05 11:00 | disposition expired | DRG 871 ==
LOC: ER 19:47 → 1 WEST ICU 22:09
PROVIDERS: ADMIT Internal Medicine; ATTEND Internal Medicine
PROC: 02H633Z Insertion of Infusion Device into Right Atrium, Percutaneous Approach (ICD-10-PCS; principal; 2019-10-03)
PROC: B548ZZA Ultrasonography of Superior Vena Cava, Guidance (ICD-10-PCS; 2019-10-03)
PROC: 30233N1 Transfusion of Nonautologous Red Blood Cells into Peripheral Vein, Percutaneous Approach (ICD-10-PCS; 2019-10-03)
PROC: 5A1945Z Respiratory Ventilation, 24-96 Consecutive Hours (ICD-10-PCS; 2019-10-03)
PROC: 0BH17EZ Insertion of Endotracheal Airway into Trachea, Via Natural or Artificial Opening (ICD-10-PCS; 2019-10-03)
DX: A41.9 Sepsis, unspecified organism (principal); J96.01 Acute respiratory failure with hypoxia; E43 Unspecified severe protein-calorie malnutrition; G93.41 Metabolic encephalopathy; K27.5 Chronic or unspecified peptic ulcer, site unspecified, with perforation; N17.0 Acute kidney failure with tubular necrosis; R65.21 Severe sepsis with septic shock; D68.9 Coagulation defect, unspecified; E87.2 Acidosis; I48.92 Unspecified atrial flutter; K50.90 Crohn's disease, unspecified, without complications; L02.31 Cutaneous abscess of buttock; D63.8 Anemia in other chronic diseases classified elsewhere; E03.9 Hypothyroidism, unspecified; E11.9 Type 2 diabetes mellitus without complications; E78.5 Hyperlipidemia, unspecified; E83.42 Hypomagnesemia; F03.90 Unspecified dementia, unspecified severity, without behavioral disturbance, psychotic disturbance, mood disturbance, and anxiety; I10 Essential (primary) hypertension; I71.4 Abdominal aortic aneurysm, without rupture; K29.60 Other gastritis without bleeding; R57.8 Other shock; Z20.828 Contact with and (suspected) exposure to other viral communicable diseases; Z51.5 Encounter for palliative care; Z66 Do not resuscitate; Z86.79 Personal history of other diseases of the circulatory system; Z87.39 Personal history of other diseases of the musculoskeletal system and connective tissue; Z87.891 Personal history of nicotine dependence; M19.90 Unspecified osteoarthritis, unspecified site
CPT/HCPCS: 36415; 36430; 36600; 71045; 74018; 80053; 82310; 82553; 82803; 82805; 82962; 83605; 83735; 83880; 84100; 84484; 85007; 85025; 85384; 85610; 85730; 86850; 86900; 86901; 86920; 87040; 87077; 87186; 87205; 87426; 93005; 93308; 94002; 94003; 96365; 96366; 96368; 96375; 96376; C9113; J0171; J0282; J1160; J1720; J1815; J2020; J2060; J2248; J2250; J2270; J2543; J3010; J3370; J3480; J3490; J7030; J7042; J7050; J7060; P9016; 99285-25; G0378; U0003-CS